=== PATIENT | male | born 1965 | race Caucasian/White ===

== ENCOUNTER 2017-04-10 07:49 | Emergency (ER) | payer MEDICAID ==
[~2017-04-10] VITALS: Ht 190.5 cm; Wt 77.1 kg
[~2017-04-10 07:49] MED LIST: AMIT25TA9 PO; ASCO500C49 PO; DICL75TA2 PO; DIVA500T7 PO; DOXY-216 PO; FER325T PO; FOLI1TAB6 PO; GABA-497 PO; IBUP800T24 PO; MULTTAB67 PO; OLA5T PO; OXYC7.5T88 PO; THIA100T5 PO; TRAM50TA2 PO; VENL75TA PO; ZINC220T3 PO
[2017-04-10 08:13] VITALS: BP 168/110
[2017-04-10] MEDS ORDERED: cefTRIAXone SOD 1,000 MG VL IM ONE (08:45)
== END 2017-04-10 09:17 | disposition home or self-care (01) ==
LOC: ER 07:49
DX: L02.511 Cutaneous abscess of right hand (principal); Z79.899 Other long term (current) drug therapy; F17.210 Nicotine dependence, cigarettes, uncomplicated
CPT/HCPCS: 10060; 87077; 87186; 87205; 96372; 99284; J0696

== ENCOUNTER 2017-04-12 07:18 | Emergency (ER) | payer MEDICAID ==
[~2017-04-12] VITALS: Ht 190.5 cm; Wt 77.1 kg
[2017-04-12 10:06] VITALS: BP 166/88
[2017-04-12] MEDS ORDERED: BACITRACIN TOP OINT 1 UD PKG TOP ONE (11:00)
== END 2017-04-12 11:15 | disposition home or self-care (01) ==
LOC: ER 07:18
DX: M71.021 Abscess of bursa, right elbow (principal); F17.210 Nicotine dependence, cigarettes, uncomplicated; Z89.521 Acquired absence of right knee; Z79.899 Other long term (current) drug therapy
CPT/HCPCS: 99282; J7050

== ENCOUNTER 2017-11-14 12:14 | Emergency (ER) | payer MEDICAID ==
[~2017-11-14] VITALS: Ht 190.5 cm; Wt 74.8 kg
[~2017-11-14 12:14] MED LIST changes: -GABA-497 PO; +GABA300C10 PO
[2017-11-14] MEDS ORDERED: SODIUM CHLORIDE 0.9% 1,000 ML IV ONE (14:42)
[2017-11-14 16:00] LABS: Basophils # (auto) 0 uL; Basophils % (auto) 0.8 % (0.0-2.0); Eosinophils # (auto) 0.2 uL; Eosinophils % (auto) 3.4 % (0.0-7.0); Hematocrit 32.6 % (41.0-53.0); Hemoglobin 11.2 g/dL (13.5-17.5); Lymphocytes # (auto) 1.8 uL; Lymphocytes % (auto) 38.1 % (10.0-50.0); Mean Corpuscular Hemoglobin 32.3 pg (28.0-32.0); Mean Corpuscular Hgb Conc. 34.4 g/dL (32.0-36.0); Mean Corpuscular Volume 94.1 fL (80.0-100.0); Monocytes # (auto) 0.3 uL; Monocytes % (auto) 5.5 % (0.0-12.0); Neutrophils # (auto) 2.5 uL; Neutrophils % (auto) 52.2 % (37.0-80.0); Platelet Count (auto) 184 10^3/uL (140-450); Red Blood Cells 3.46 10^6/uL (4.5-5.90); Red Cell Distribution Width 14.3 % (11.8-14.3); White Blood Cell 4.8 10^3/uL (4.4-10.8)
[2017-11-14 16:16] LABS: INR 1.22 (0.9-1.15); Partial Thromboplastin Time 33.4 sec (23.78-33.04); Prothrombin Time 12.9 sec (9.27-12.13)
[2017-11-14 16:19] VITALS: BP 179/100
[2017-11-14 16:29] LABS: Alanine Aminotransferase 35 U/L (16-61); Albumin 3.3 g/dL (3.4-5.0); Alkaline Phosphatase 98 U/L (45-117); Anion Gap 10 (5-15); Aspartate Aminotransferase 39 U/L (15-37); BUN/Creatinine Ratio 15.5; Bilirubin, Total 0.5 mg/dL (0.2-1.0); Blood Urea Nitrogen 11 mg/dL (7-18); Calcium 7.7 mg/dL (8.5-10.1); Carbon Dioxide 21 mmol/L (21-32); Chloride 96 mmol/L (98-107); GFR African American 149 mL/min; GFR Non-African American 123 mL/min; Glucose 78 mg/dL (74-106); Sodium 127 mmol/L (136-145); Total Protein 7.1 g/dL (6.4-8.2)
[2017-11-14] MEDS ORDERED: HYDROcodone-ACET 10/325MG TAB PO ONE (16:30)
== END 2017-11-14 18:06 | disposition home or self-care (01) ==
LOC: EDBD 12:14 → ER 12:22
DX: T81.89XA Other complications of procedures, not elsewhere classified, initial encounter (principal); F17.210 Nicotine dependence, cigarettes, uncomplicated; Z85.828 Personal history of other malignant neoplasm of skin; Z89.511 Acquired absence of right leg below knee; Z79.899 Other long term (current) drug therapy; Y92.89 Other specified places as the place of occurrence of the external cause
CPT/HCPCS: 36415; 70450; 80053; 84484; 85025; 85610; 85730

== ENCOUNTER 2017-11-25 08:09 | Emergency (ER) | payer MEDICAID ==
[~2017-11-25] VITALS: Ht 190.5 cm; Wt 74.8 kg
[2017-11-25 08:37] VITALS: BP 137/91
== END 2017-11-25 09:08 | disposition home or self-care (01) ==
LOC: ER 08:11
DX: S01.81XD Laceration without foreign body of other part of head, subsequent encounter (principal); F17.210 Nicotine dependence, cigarettes, uncomplicated; X58.XXXD Exposure to other specified factors, subsequent encounter

== ENCOUNTER 2018-11-02 12:15 | Emergency (ER) | payer MEDICAID ==
[~2018-11-02] VITALS: Ht 177.8 cm; Wt 79.8 kg
[~2018-11-02 12:15] MED LIST changes: +DIVA1TAB59 PO; -DIVA500T7 PO
[2018-11-02 12:33] VITALS: BP 137/77
[2018-11-02] MEDS ORDERED: GABAPENTIN 300 MG CAP PO ONE (13:45)
[2018-11-02] MEDS ORDERED: IBUPROFEN 800 MG TAB PO ONE (13:45)
== END 2018-11-02 13:54 | disposition home or self-care (01) ==
LOC: EDBD 12:15 → ER 12:15
DX: F41.9 Anxiety disorder, unspecified (principal); F32.9 Major depressive disorder, single episode, unspecified; F17.210 Nicotine dependence, cigarettes, uncomplicated; Z76.0 Encounter for issue of repeat prescription; Z79.899 Other long term (current) drug therapy
CPT/HCPCS: 93005

== ENCOUNTER 2020-02-19 15:57 | Inpatient (IN) | payer MEDICAID ==
[~2020-02-19] VITALS: Ht 190.5 cm; Wt 68.4 kg
[~2020-02-19 15:57] MED LIST changes: -DOXY-216 PO; +DOXY-286 PO; -VENL75TA PO; +VENL75TA2 PO
[2020-02-19 17:16] LABS: Basophils # (auto) 0 10 ^3/uL (0-0.2); Basophils % (auto) 0.3 % (0.0-2.0); Eosinophils # (auto) 0.1 10 ^3/uL (0-0.8); Eosinophils % (auto) 1.9 % (0.0-7.0); Hematocrit 26.2 % (41.0-53.0); Hemoglobin 8.5 g/dL (13.5-17.5); Lymphocytes # (auto) 0.8 10 ^3/uL (0.4-5.4); Mean Corpuscular Hemoglobin 29.1 pg (28.0-32.0); Mean Corpuscular Hgb Conc. 32.6 g/dL (32.0-36.0); Mean Corpuscular Volume 89.2 fL (80.0-100.0); Monocytes # (auto) 0.4 10 ^3/uL (0-1.3); Monocytes % (auto) 7.1 % (0.0-12.0); Neutrophils # (auto) 4.6 10 ^3/uL (1.6-8.6); Neutrophils % (auto) 77.7 % (37.0-80.0); Platelet Count (auto) 237 10^3/uL (140-450); Red Blood Cells 2.94 10^6/uL (4.5-5.90); Red Cell Distribution Width 16.9 % (11.8-14.3); White Blood Cell 5.9 10^3/uL (4.4-10.8)
[2020-02-19 17:27] LABS: Albumin 2.4 g/dL (3.4-5.0); Calcium 8.8 mg/dL (8.5-10.1); Potassium 3.1 mmol/L (3.5-5.1)
[2020-02-19 17:31] LABS: BUN/Creatinine Ratio 16.6; Bilirubin, Total 0.5 mg/dL (0.2-1.0); Total Protein 7.8 g/dL (6.4-8.2)
[2020-02-19 20:38] LABS: Urine Bacteria FEW /hpf (None Seen); Urine Blood TRACE /uL (Negative); Urine Hyaline Cast FEW /lpf (0 - 2); Urine Specific Gravity 1.026 (1.001-1.035); Urine WBC 5 /hpf (0 - 3)
[2020-02-19] MEDS ORDERED: SODIUM CHLORIDE 0.9% 1,000 ML IVB ONE (21:07)
[2020-02-19] MEDS ORDERED: HYDROcodone-ACET 10/325MG TAB PO ONE (21:15)
[2020-02-19] MEDS ORDERED: CLINDAMYCIN 600MG IV 50 ML IV ONE (21:15)
[2020-02-19] MEDS ORDERED: cefTRIAXone 1GM/50ML D5W 50 ML IV ONE (21:15)
[2020-02-19 22:00] LABS: INR 1.31 (0.9-1.15); Partial Thromboplastin Time 30.2 sec (23.0-31.2)
[2020-02-19] MEDS ORDERED: ONDANSETRON HCL 4 MG/2 ML VIAL IV PRN (22:00)
[2020-02-19] MEDS ORDERED: DOCUSATE SOD 100 MG CAP PO PRN (22:00)
[2020-02-19] MEDS ORDERED: LORazepam 0.5 MG TAB PO PRN (22:00)
[2020-02-19] MEDS ORDERED: ACETAMINOPHEN 325 MG TAB PO PRN (22:00)
[2020-02-20 01:00] VITALS: BP 138/83
--- NOTE | 2020-02-20 01:00 | NUR ---
assumed care of pt, who is alert and oriented x4, speech is clear but possible hx of TBI r/t fall 10 years ago as mannerisms are child-like. Pt has no s/s of distress and no c/o pain or discomfort. large wound to lateral upper calf area of rt BKA, opened to air. pt also has 1st and 2nd toes missing from left foot with some scabbing to zepeda area. otherwise skin is intact.
[2020-02-20] MEDS: CLINDAMYCIN 600MG IV 50 ML IV SCH ×4 (01:15→18:23)
--- NOTE | 2020-02-20 02:00 | NUR ---
wound cleaned and dressing applied, pt given pain meds and reassurance.
[2020-02-20] MEDS: HYDROcodone-ACET 5/325MG TAB PO PRN ×2 (02:26→11:27)
[2020-02-20] MEDS: TEMAZEPAM 15 MG CAP PO PRN (02:26)
[2020-02-20 05:00] VITALS: BP 129/71
[2020-02-20 05:25] LABS: Hemoglobin 7.8 g/dL (13.5-17.5); White Blood Cell 4.1 10^3/uL (4.4-10.8)
[2020-02-20 05:27] LABS: Hematocrit 24.5 % (41.0-53.0); Mean Corpuscular Hemoglobin 29.9 pg (28.0-32.0); Mean Corpuscular Volume 93.4 fL (80.0-100.0); Platelet Count (auto) 180 10^3/uL (140-450); Red Blood Cells 2.62 10^6/uL (4.5-5.90); Red Cell Distribution Width 17.3 % (11.8-14.3)
[2020-02-20 05:41] LABS: Calcium 8.1 mg/dL (8.5-10.1); Potassium 3.5 mmol/L (3.5-5.1)
[2020-02-20 05:45] LABS: BUN/Creatinine Ratio 24.2
[2020-02-20 05:53] LABS: Basophils % (manual) 0 (0.0-2.0); Blast Cells 0; Myelocytes % 0; Promyelocytes % 0; Reactive Lymphocytes 0
--- NOTE | 2020-02-20 07:40 | NUR ---
Opening shift note Assumed care of patient from CODY Medeiros. Patient is AOx4, so s/s of SOB or distress noted. Bed is in lowest locked position, side rails up x2, and call light is within reach. Educated patient on how to use call light and telephone, patient verbalized understanding. Patient stated "When can i go home? I want to leave!" Educated patient reading D/C and the right to sign out AMA. Patient verbalized understanding and stated "I guess i will stay here and wait for a doctor." Will continue to monitor q1hr and PRN. Addendum: 02/20/20 at 1318 by DOROTHY BEE RN IV NOTED TO BE REMOVED. PATIENT STATED "I DO NOT NOW WHAT HAPPENED IT JUST FELL OUT."
[2020-02-20 09:00] VITALS: BP 116/50
[2020-02-20 09:08] LABS: Band Neutrophils % (manual) 7; Eosinophils % (manual) 2 (0-7); Lymphocytes % (manual) 29 (10.0-50.0); Metamyelocytes % 2; Monocytes % (manual) 7 (0-12)
[2020-02-20] MEDS: cefTRIAXone 1GM/50ML D5W 50 ML IV SCH ×2 (10:00→11:26)
--- NOTE | 2020-02-20 11:00 | NUR ---
Patient request for password patient requested password to be placed on account. Patient stated "my son Keegan's number is [phone]".
--- NOTE | 2020-02-20 11:30 | NUR ---
WOUND CARE NOTE: IN TO SEE PATIENT AT THIS TIME PER WOUND CARE CONSULT REQUEST. PATIENT ADMITTED TO [facility] WITH DIAGNOSIS OF INFECTION OF AMPUTATION STUMP WOUND, POSSIBLE CELLULITIS. CURRENT ABHIJIT SCORE IS 21. WOUND PHOTO TAKEN AT TIME OF ADMIT BY BEDSIDE NURSE FOR REFERENCE. PATIENT STATES THAT HE NOTED WOUND APPROXIMATELY 4 DAYS AGO. HE HAS HAD A RIGHT BKA, WITH A WELL HEALED STUMP. PATIENT USES AN ILL FITTING PROSTHESIS, AND WAS RENDERED WITH AN UNSTAGEABLE PRESSURE INJURY TO THE RIGHT BKA CALF. WOUND MEASURES 4 X 3.5 CM, WITH 1 CM UNDERMINING FROM 0900 TO 1100. WOUND COVERED WITH YELLOW SLOUGH. LIGHT SEROUS DRAINAGE NOTED. APPLIED THERAHONEY, OPTIFOAM GENTLE DRESING TO WOUND. WOUND CULTURES ARE PENDING AT THIS TIME. PODIATRY CONSULT ALSO PENDING. RECOMMEND: ELEVATION OF RIGHT BKA STUMP FOR EDEMA CONTROL, DAILY/PRN DRESSING CHANGE, DIETARY CONSULT, SKIN/WOUND CARE PLAN, PODIATRY CONSULT, CONTINUED MONITORING BY WOUND CARE TEAM. ANY FURTHER WOUND RECOMMENDATIONS DEFERRED TO ARTIFICIAL STONE APPLICATOR AT THIS POINT. Addendum: 02/20/20 at 1621 by Taylor Salcedo RN Amended: Links added.
--- NOTE | 2020-02-20 12:00 | NUR ---
IV ATEMPT IV access attempted twice, no IV acess was gained. Notified weigh and charge worker Joslyn. Per charge she will attempt IV.
--- NOTE | 2020-02-20 12:40 | NUR ---
Physician rounding Dr. Mayo at nurses station, updated MD on patient status. New orders received. Will follow through, will continue care.
[2020-02-20 13:00] VITALS: BP 142/63
--- NOTE | 2020-02-20 13:00 | NUR ---
Physician rounding Dr. Amaral at bedside, updated patient on plan of care, patient verbalized understanding, no new orders received.
--- NOTE | 2020-02-20 13:23 | NUR ---
COMPOSITE LAMINATORRASHMI Davis at bedside attempting ultrasound guided IV insertion.
--- NOTE | 2020-02-20 13:38 | NUR ---
IV insertion RASHMI Davis gained IV access by inserting 20 gauge catheter at left upper arm. IV secured properly.
[2020-02-20] MEDS: MORPHINE SULF INJ 2 MG/ML SYRINGE 1ML IV PRN (16:54)
[2020-02-20 17:00] VITALS: BP 129/51
[2020-02-20] MEDS: Ensure HIGH Protein Chocolate 8oz Bottle PO SCH (18:33)
--- NOTE | 2020-02-20 19:25 | NUR ---
end of shift note Endorsed care to noc RASHMI Lu. No s/s of distress noted.
--- NOTE | 2020-02-20 20:45 | NUR ---
IV removal IV DC'd due to infiltration. Dc'd with sterile technique, catheter fully intact. Pressure dressing applied to site. Patient tolerated procedure well.
--- NOTE | 2020-02-20 20:48 | NUR ---
IV insertion IV access obtained, via clean sterile technique by inserting 22 gauge catheter at right forearm after 2 attempts. IV secured properly. No trauma to site. Patient tolerated procedure well.
[2020-02-20 22:00] VITALS: BP 126/78
[2020-02-21] MEDS: CLINDAMYCIN 600MG IV 50 ML IV SCH ×5 (00:26→23:42)
[2020-02-21 05:00] VITALS: BP 150/81
[2020-02-21] MEDS: MORPHINE SULF INJ 2 MG/ML SYRINGE 1ML IV PRN ×3 (05:23→18:28)
[2020-02-21 06:15] LABS: Basophils # (auto) 0 10 ^3/uL (0-0.2); Basophils % (auto) 0.6 % (0.0-2.0); Eosinophils # (auto) 0.1 10 ^3/uL (0-0.8); Hemoglobin 7.7 g/dL (13.5-17.5); Lymphocytes # (auto) 0.6 10 ^3/uL (0.4-5.4); Monocytes # (auto) 0.3 10 ^3/uL (0-1.3); Neutrophils # (auto) 2.2 10 ^3/uL (1.6-8.6); White Blood Cell 3.3 10^3/uL (4.4-10.8)
[2020-02-21 06:18] LABS: Eosinophils % (auto) 3.5 % (0.0-7.0); Hematocrit 23.3 % (41.0-53.0); Mean Corpuscular Hemoglobin 29.7 pg (28.0-32.0); Mean Corpuscular Hgb Conc. 32.9 g/dL (32.0-36.0); Mean Corpuscular Volume 90.2 fL (80.0-100.0); Monocytes % (auto) 9.8 % (0.0-12.0); Neutrophils % (auto) 67.1 % (37.0-80.0); Nucleated Red Blood Cells % 0.1 %; Platelet Count (auto) 185 10^3/uL (140-450); Red Blood Cells 2.59 10^6/uL (4.5-5.90); Red Cell Distribution Width 16.9 % (11.8-14.3)
[2020-02-21 06:37] LABS: BUN/Creatinine Ratio 37.1; Calcium 8.2 mg/dL (8.5-10.1)
--- NOTE | 2020-02-21 07:40 | NUR ---
Opening shift note Assumed care of patient from NOC RN Aly. Patient is AOx4, so s/s of SOB or distress noted. Bed is in lowest locked position, side rails up x2, and call light is within reach. Educated patient on how to use call light and telephone, patient verbalized understanding. Will continue to monitor q1hr and PRN.
[2020-02-21 09:00] VITALS: BP 124/71
[2020-02-21] MEDS: Ensure HIGH Protein Chocolate 8oz Bottle PO SCH ×3 (09:56→18:23)
[2020-02-21] MEDS: cefTRIAXone 1GM/50ML D5W 50 ML IV SCH (10:30)
--- NOTE | 2020-02-21 10:40 | NUR ---
Dressing change Dressing changed, patient tolerated procedure well. Will continue to monitor.
--- NOTE | 2020-02-21 11:00 | NUR ---
Physician rounding Dr. Amaral at bedside. updated patient on plan of care, patient verbalized understanding. New orders received will follow through. Addendum: 02/21/20 at 1809 by DOROTHY BEE RN Per doctor columba procedure for tomorrow is called Right stump application of allograft.
--- NOTE | 2020-02-21 11:41 | NUR ---
Nutrition Consult Consider adding MVI and Vitamin C 500 mg BID Est energy needs 0943-2760 kcal (25-30 kcal/kg BW 67.5kg) Est protein needs 68-74g (1-1.1g/kg BW 67.5kg) WIll reassess prn. Addendum: 02/21/20 at [address] Amended: Links added.
[2020-02-21] MEDS ORDERED: PHYTONADIONE(VitK) ORAL Susp 10mg/10ml(1mg/ml) PO ONE (12:15)
--- NOTE | 2020-02-21 12:15 | NUR ---
Physician roundsusan Mayo at bedside. MD updated patient on plan of care and patient verbalized understanding. Patient requesting to resume home medications, stated that home medications can be resumed. New orders received will follow thorough. Addendum: 02/21/20 at 1831 by DOROTHY BEE RN patient requesting to resume gabapentin.
--- NOTE | 2020-02-21 12:20 | NUR ---
IV assessment IV noted to be infiltrated. Will notify set up and charger regarding no IV access.
--- NOTE | 2020-02-21 12:27 | NUR ---
Notified PICC nurse regarding Midline insertion.
--- NOTE | 2020-02-21 12:59 | NUR ---
Midline Placement: Patient educated on need for midline placement. All risks and benefits explained and all questions and concerns addresses prior to procedure. 18g/10cm midline inserted via L CEPHALIC vein using Ultrasound. Sterile technique utilized. Blood return obtained from SINGLE lumen and flushed easily with NS using proper technique. Midline secured with saline lock; biodisc and occlusive dressing applied. Primary RN notified. Midline lot # [id number].
[2020-02-21 13:00] VITALS: BP 123/74
[2020-02-21 17:00] VITALS: BP 134/91
--- NOTE | 2020-02-21 19:00 | NUR ---
End of shift note Endorsed care to NOC RN Aliyah. No s/s of distress noted.
[2020-02-21] MEDS: GABAPENTIN 300 MG CAP PO SCH (21:50)
[2020-02-21 22:00] VITALS: BP 115/67
[2020-02-22 05:23] VITALS: BP 139/87
[2020-02-22] MEDS: GABAPENTIN 300 MG CAP PO SCH ×3 (06:17→21:00)
[2020-02-22] MEDS: CLINDAMYCIN 600MG IV 50 ML IV SCH ×3 (06:17→18:06)
[2020-02-22 06:19] LABS: Basophils # (auto) 0 10 ^3/uL (0-0.2); Basophils % (auto) 0.6 % (0.0-2.0); Eosinophils # (auto) 0.1 10 ^3/uL (0-0.8); Lymphocytes # (auto) 0.9 10 ^3/uL (0.4-5.4); Neutrophils # (auto) 2.4 10 ^3/uL (1.6-8.6); White Blood Cell 3.8 10^3/uL (4.4-10.8)
[2020-02-22 06:22] LABS: Eosinophils % (auto) 3.6 % (0.0-7.0); Hematocrit 23.9 % (41.0-53.0); Lymphocytes % (auto) 23.6 % (10.0-50.0); Mean Corpuscular Hemoglobin 29.7 pg (28.0-32.0); Mean Corpuscular Hgb Conc. 33.5 g/dL (32.0-36.0); Mean Corpuscular Volume 88.8 fL (80.0-100.0); Monocytes # (auto) 0.4 10 ^3/uL (0-1.3); Monocytes % (auto) 9.9 % (0.0-12.0); Neutrophils % (auto) 62.3 % (37.0-80.0); Platelet Count (auto) 191 10^3/uL (140-450); Red Blood Cells 2.69 10^6/uL (4.5-5.90); Red Cell Distribution Width 17.8 % (11.8-14.3)
--- NOTE | 2020-02-22 06:32 | NUR ---
received a call from pre-op, requesting pt to be there by 730, will let day shift nurse know, completing checklist at this time.
[2020-02-22 06:34] LABS: INR 1.26 (0.9-1.15)
[2020-02-22 06:42] LABS: Potassium 4.5 mmol/L (3.5-5.1)
[2020-02-22 06:54] LABS: BUN/Creatinine Ratio 35.7; Calcium 8.4 mg/dL (8.5-10.1)
[2020-02-22] MEDS: ceFAZolin 1GM VL ONE ×2 (07:13→11:03)
[2020-02-22] MEDS ORDERED: ROPIVACAINE 0.5% (5MG/ML) 20ML AMPULE IJ ONE (07:13)
--- NOTE | 2020-02-22 07:30 | NUR ---
Opening Shift Note Assuming care of patient at this time. Patient is awake and alert. Patient denies pain. Patient shows no signs or symptoms of distress or shortness of breath. Bed is locked and lowered with side rails up x2. Instructed patient on the plan of care for today and to call for assistance as needed. Call light within reach. Will continue to round hourly and as needed.
--- NOTE | 2020-02-22 07:50 | NUR ---
Patient off Unit Patient taken to OR at this time.
[2020-02-22] MEDS ORDERED: fentaNYL CITRATE 100 MCG/2 ML VL ONE (07:55)
[2020-02-22] MEDS ORDERED: SODIUM CHLORIDE LOCK 10 ML ONE (07:55)
[2020-02-22] MEDS ORDERED: PROPOFOL 10 MG/ML 20 ML IV ONE (07:55)
[2020-02-22] MEDS ORDERED: ONDANSETRON HCL 4 MG/2 ML VIAL ONE (07:55)
[2020-02-22] MEDS ORDERED: MIDAZOLAM HCL 1MG/1ML-2 ML VIAL ONE (07:55)
[2020-02-22] MEDS: Ensure HIGH Protein Chocolate 8oz Bottle PO SCH ×3 (08:00→18:06)
[2020-02-22] MEDS ORDERED: ceFAZolin 1GM/50ML 50 ML IV ONE (08:02)
[2020-02-22] MEDS ORDERED: METOCLOPRAMIDE HCL 5MG/ml INJ 2ml VIAL IV PRN (08:15)
[2020-02-22] MEDS ORDERED: MORPHINE SULFATE 4 MG/ML SYR/VIAL IV PRN (08:15)
[2020-02-22] MEDS ORDERED: HYDROmorphone HCL 2 MG/ML VL IV PRN (08:15)
[2020-02-22] MEDS ORDERED: ACCU-CHEK COMFORT CURVE STRIP VI ONE (08:15)
--- NOTE | 2020-02-22 08:33 | NUR ---
Assessment Patient is a 55-year-old male who is alert and oriented. Prior to admission patient lived home with friends and functioned independently. Patient can care for his own ADLs. Per patient he will return to his prior living arrangements post discharge and his friend Morris Lozano will transport him home. Patient states he has a shower chair and walker for home use. Advised patient there is a social service consult for home health wound care. Patient refused home health service stating he can do it himself or his two friends can help care for his wound. Informed patient he has a right to participate in all discharge planning. Patient verbalized understanding and agreed to discharge plan home. Addendum: 02/22/20 at 0834 by JULIÁN MCGINNIS Amended: Links added.
[2020-02-22 09:00] VITALS: BP 91/62
[2020-02-22] MEDS ORDERED: KETAMINE HCL 10 ML ONE (09:10)
[2020-02-22] MEDS: cefTRIAXone 1GM/50ML D5W 50 ML IV SCH (10:00)
[2020-02-22] MEDS ORDERED: LIDOCAINE HCL 2 %PF INJ 10ML AMP IJ ONE (10:14)
[2020-02-22] MEDS ORDERED: LIDOCAINE 2%HCL (LOCAL ANESTH.) INJ 20ML MDV ONE (10:17)
--- NOTE | 2020-02-22 12:15 | NUR ---
Patient back on Unit Patient back on unit at this time. Dressing to surgical site is wrapped in kerlix. Dressing is clean, dry, and intact. Patient denies pain. Patient shows no signs or symptoms of distress.
[2020-02-22 13:00] VITALS: BP 145/92
[2020-02-22] MEDS: MORPHINE SULF INJ 2 MG/ML SYRINGE 1ML IV PRN ×2 (14:46→21:01)
[2020-02-22 16:53] VITALS: BP 109/74
--- NOTE | 2020-02-22 19:10 | NUR ---
Closing Shift Note Patient resting in bed. No distress noted. Report given. Will endorse care to the high school science teacher.
--- NOTE | 2020-02-22 19:12 | NUR ---
Opening Shift Note Assuming care of patient at this time. Patient is awake and alert. Patient denies pain at this time. Patient shows no signs or symptoms of distress or shortness of breath. Bed is locked and lowered with side rails up x2 and call ferraro within reach. Instructed patient on the plan of care for today and to call for assistance as needed, all questions and concerns addressed, patient verbalizes understanding. Call light within reach. Will continue to round hourly and as needed.
[2020-02-22 20:00] VITALS: BP 123/74
[2020-02-22 22:00] VITALS: BP 123/74
[2020-02-23] MEDS: CLINDAMYCIN 600MG IV 50 ML IV SCH ×3 (00:09→12:00)
[2020-02-23] MEDS: TEMAZEPAM 15 MG CAP PO PRN (00:10)
--- NOTE | 2020-02-23 00:48 | NUR ---
Care endorsed to Hannah CARABALLO.
[2020-02-23 05:00] VITALS: BP 132/76
[2020-02-23] MEDS: GABAPENTIN 300 MG CAP PO SCH ×2 (05:47→14:43)
[2020-02-23 05:59] LABS: Basophils # (auto) 0 10 ^3/uL (0-0.2); Eosinophils # (auto) 0.2 10 ^3/uL (0-0.8); Hematocrit 23.6 % (41.0-53.0); Hemoglobin 7.8 g/dL (13.5-17.5); Monocytes # (auto) 0.4 10 ^3/uL (0-1.3)
[2020-02-23 06:02] LABS: Basophils % (auto) 0.7 % (0.0-2.0); Eosinophils % (auto) 3.5 % (0.0-7.0); Lymphocytes % (auto) 22.9 % (10.0-50.0); Mean Corpuscular Hemoglobin 29.5 pg (28.0-32.0); Mean Corpuscular Hgb Conc. 33.2 g/dL (32.0-36.0); Monocytes % (auto) 9.4 % (0.0-12.0); Neutrophils # (auto) 2.9 10 ^3/uL (1.6-8.6); Neutrophils % (auto) 63.5 % (37.0-80.0); Nucleated Red Blood Cells % 0.2 %; Platelet Count (auto) 163 10^3/uL (140-450); Red Blood Cells 2.65 10^6/uL (4.5-5.90); Red Cell Distribution Width 17.8 % (11.8-14.3); White Blood Cell 4.6 10^3/uL (4.4-10.8)
[2020-02-23] MEDS: HYDROcodone-ACET 5/325MG TAB PO PRN (06:23)
[2020-02-23 06:42] LABS: BUN/Creatinine Ratio 37.8; Calcium 8.4 mg/dL (8.5-10.1); Potassium 4.5 mmol/L (3.5-5.1)
--- NOTE | 2020-02-23 07:30 | NUR ---
Opening Shift Note Assuming care of patient at this time. Patient is awake and alert. Patient denies pain at this time. Patient shows no signs or symptoms of distress or shortness of breath. Bed is locked and lowered with side rails up x2. Instructed patient on the plan of care for today and to call for assistance as needed. Call light within reach. Will continue to round hourly and as needed.
[2020-02-23] MEDS: Ensure HIGH Protein Chocolate 8oz Bottle PO SCH ×2 (08:30→12:30)
[2020-02-23 09:00] VITALS: BP 115/65
[2020-02-23] MEDS: cefTRIAXone 1GM/50ML D5W 50 ML IV SCH (10:30)
--- NOTE | 2020-02-23 12:12 | NUR ---
Pt provided crutches. The crutches were adjusted to fit his frame. Due to extensive experience with crutches the pt was able to demonstrate competence using the crutches without any education required. Addendum: 02/23/20 at 1216 by Rocky Vazquez YARD DEMURRAGE CLERK Amended: Links added.
[2020-02-23 16:23] VITALS: BP 115/65
--- NOTE | 2020-02-23 17:46 | NUR ---
Discharge Discharge instructions given as ordered. Encourage to follow up with PMD as instructed. Appointments made for patient's primary and surgeon, Dr. Amaral. All questions and concerns addressed. Patient verbalized understanding. Medication reconciliation form completed and copy given to patient. Prescription delivered to patient's bedside. IV removed with catheter intact, pressure dressing applied. Patient taken to vehicle via wheelchair with all personal belongings, accompanied by staff and family member. No distress noted at time of departure.
--- NOTE | 2020-02-23 17:49 | NUR ---
Crutches Assisted patient with putting crutches in his friend's vehicle.
== END 2020-02-23 17:30 | disposition home or self-care (01) | DRG 317 ==
LOC: ER 15:57 → OVERFLOW 15:58 → WEST WING 23:33
PROVIDERS: ADMIT Hospitalist; ATTEND Internal Medicine
PROC: 0JU Subcutaneous Tissue and Fascia, Supplement (ICD-10-PCS; principal; 2020-02-22 10:26)
DX: T87.40 Infection of amputation stump, unspecified extremity (principal); E87.6 Hypokalemia; E87.1 Hypo-osmolality and hyponatremia; D63.8 Anemia in other chronic diseases classified elsewhere; D68.9 Coagulation defect, unspecified; L03.115 Cellulitis of right lower limb; L89.890 Pressure ulcer of other site, unstageable; E44.0 Moderate protein-calorie malnutrition; F41.9 Anxiety disorder, unspecified; F17.210 Nicotine dependence, cigarettes, uncomplicated; Y83.5 Amputation of limb(s) as the cause of abnormal reaction of the patient, or of later complication, without mention of misadventure at the time of the procedure; N18.9 Chronic kidney disease, unspecified; N17.0 Acute kidney failure with tubular necrosis; D50.9 Iron deficiency anemia, unspecified; Z89.511 Acquired absence of right leg below knee; Z68.1 Body mass index [BMI] 19.9 or less, adult; E88.09 Other disorders of plasma-protein metabolism, not elsewhere classified
CPT/HCPCS: 36415; 71045; 73590; 80048; 80053; 81001; 83605; 83735; 85007; 85025; 85027; 85610; 85730; 87040; 87070; 87075; 87076; 87077; 87086; 87186; 87205; G0378; J0690; J0696; J2250; J2405; J2704; J3490

== ENCOUNTER 2020-03-16 16:24 | Inpatient (IN) | payer MEDICAID ==
[~2020-03-16] VITALS: Ht 182.9 cm; Wt 70.6 kg
[2020-03-16] MEDS ORDERED: SODIUM CHLORIDE 0.9% 1,000 ML IV ONE (16:45)
[2020-03-16 17:44] LABS: Basophils # (auto) 0 10 ^3/uL (0-0.2); Basophils % (auto) 1.2 % (0.0-2.0); Eosinophils # (auto) 0.2 10 ^3/uL (0-0.8); Eosinophils % (auto) 8.3 % (0.0-7.0); Hematocrit 28.3 % (41.0-53.0); Hemoglobin 9.2 g/dL (13.5-17.5); Lymphocytes % (auto) 45.9 % (10.0-50.0); Mean Corpuscular Hemoglobin 29.4 pg (28.0-32.0); Mean Corpuscular Hgb Conc. 32.5 g/dL (32.0-36.0); Mean Corpuscular Volume 90.4 fL (80.0-100.0); Monocytes # (auto) 0.2 10 ^3/uL (0-1.3); Neutrophils # (auto) 0.8 10 ^3/uL (1.6-8.6); Neutrophils % (auto) 36.6 % (37.0-80.0); Nucleated Red Blood Cells % 0.3 %; Platelet Count (auto) 118 10^3/uL (140-450); Red Blood Cells 3.13 10^6/uL (4.5-5.90); Red Cell Distribution Width 17.8 % (11.8-14.3); White Blood Cell 2.2 10^3/uL (4.4-10.8)
[2020-03-16 17:57] LABS: INR 1.24 (0.9-1.15); Partial Thromboplastin Time 29.8 sec (23.0-31.2)
[2020-03-16 18:01] LABS: Alanine Aminotransferase 15 U/L (16-61); Albumin 2.9 g/dL (3.4-5.0); Anion Gap 8 (5-15); Aspartate Aminotransferase 19 U/L (15-37); BUN/Creatinine Ratio 12.6; Blood Urea Nitrogen 14 mg/dL (7-18); Calcium 8.9 mg/dL (8.5-10.1); Carbon Dioxide 23 mmol/L (21-32); Chloride 107 mmol/L (98-107); GFR African American 88 mL/min; GFR Non-African American 73 mL/min; Glucose 65 mg/dL (74-106); Lactic Acid w/Reflex 2.2 mmol/L (0.4-2.0); Potassium 4.3 mmol/L (3.5-5.1); Sodium 138 mmol/L (136-145)
[2020-03-16 18:05] LABS: Alkaline Phosphatase 97 U/L (45-117); Bilirubin, Total 0.3 mg/dL (0.2-1.0); Total Protein 7.4 g/dL (6.4-8.2)
[2020-03-16] MEDS ORDERED: DEXTROSE 50% SYRINGE 50 ML IV ONE (19:07)
[2020-03-16] MEDS ORDERED: NITROGLYCERIN 0.4 MG SL TAB SL PRN (19:30)
[2020-03-16] MEDS ORDERED: LORazepam 2MG/ML-1ML VIAL IV PRN (19:30)
[2020-03-16] MEDS ORDERED: MORPHINE SULF INJ 2 MG/ML SYRINGE 1ML IV PRN (19:30)
[2020-03-16] MEDS ORDERED: LABETALOL HCL 5 MG/ML 4ML SYRINGE IV PRN (19:30)
[2020-03-16] MEDS ORDERED: FOLIC ACID 1 MG in D5W 5% 50 ML INJ ONE (20:00)
[2020-03-16] MEDS: D5W/SOD CHLO 0.9% 1,000 ML IV SCH (20:35)
--- NOTE | 2020-03-16 20:38 | NUR ---
PT ONLY RECEIVED 400ML OF NS. Addendum: 03/16/20 at 2037 by BRYANNA HAINES RN Amended: Links added.
[2020-03-16 21:20] VITALS: BP 179/91
[2020-03-16 22:00] VITALS: BP 194/92
--- NOTE | 2020-03-16 22:50 | NUR ---
ADMitted to the floor received an altered 55 year old male brought by ed staff to 77 b-bed. unable to follow command. No yuko right bka, stump clean and dry but with what appear to be a skin graft to right knee lateral. wound is fresh with stitches around it, center has a yellowish tissue and wound bed is pinkish and moist. no bleeding, no drainage noted. pt complained of pain as it was being cleaned by yours truly. left foot toes noted to have open wounds as well, 2nd, 3rd, and 4th. open moist pinkish sores with some bleeding in it. cleaned with ns and wrapped with kerlix. kept pt clean and dry as he had a sort of incontinence when he came. blood pressure noted to be elevated. noted blood pressure medication ordered as needed. administered labetalol iv as it was elevated, taken 2x. pt unable to follow command, unable to answer question. speech was clear but has delayed responses.
[2020-03-16 23:02] VITALS: BP 202/96
--- NOTE | 2020-03-16 23:15 | NUR ---
patient agitated in bed undeterminable whether he wants to lay down on either side. sits then lays down. pulled off his chucks and threw them to the floor. tried to calm him down but unable to listen at this time. tried laying his left foot on the ground but remind him of safety precautions. patient still unable to understand.
--- NOTE | 2020-03-16 23:16 | NUR ---
went out of the room to get wound care materials, noted patient tried to get up and walk, with a right bka. rushed to the room and tried to put him back to bed. charge nurse aware, 1:1 sitter provided for safety.
--- NOTE | 2020-03-17 00:01 | NUR ---
son, rachael, called. stated he is the primary contact family member of patient. gave a password of "[employer]". seem to be unaware why pt was admitted to hospital. informed that pt was being under alcohol intoxication and was altered-with medical issues. gave his contact information , stated he may be called anytime with any changes regarding pt condition.
--- NOTE | 2020-03-17 00:02 | NUR ---
COMPLETED ADMISSION, PROVIDED UPDATE TO RN. NOTIFIED ENGINEERING DEPARTMENT CHAIR QUESTIONS COMPLETED BY INFORMATION FROM PREVIOUS CHART, AND CURRENT H&P. PT IS AOX1 AND UNABLE TO ANSWER QUESTIONS, SITTER AT BEDSIDE. NOTIFIED RN OF REQUIRING MRSA SWAB FOR PT BEING DISCHARGE IN THE LAST 30 DAYS, SOME ADMISSION PHYSICAL/SKIN/VTE QUESTIONS NEEDS TO BE COMPLETED. Addendum: 03/17/20 at 0007 by Victor M Monreal RN COMPLETED ADMISSION, PROVIDED UPDATE TO RN. NOTIFIED ENGINEERING DEPARTMENT CHAIR QUESTIONS COMPLETED BY INFORMATION FROM PREVIOUS CHART, AND CURRENT H&P. PT IS AOX1 AND UNABLE TO ANSWER QUESTIONS, SITTER AT BEDSIDE. NOTIFIED RN OF REQUIRING MRSA SWAB FOR PT BEING DISCHARGE IN THE LAST 30 DAYS, SOME ADMISSION PHYSICAL/SKIN/VTE QUESTIONS NEEDS TO BE COMPLETED BY PRIMARY RN, VITALS NEEDS TO BE PUT IN SYSTEM IN ADMISSION QUESTION. BELONGING LIST IN PHYSICAL CHART. Addendum: 03/17/20 at 0024 by Victor M Monreal RN called contact in chart to get info for admission questions, no answer. called x2. Addendum: 03/17/20 at 0025 by Victor M Monreal RN belonging list in physical chart.
--- NOTE | 2020-03-17 01:46 | NUR ---
sitter on lunch, covered by another see wheeler personnel. patient noted high fowlers on bed, mumbling with unintelligible words rubbing both his arms, with blanket chest-high staring down blankly. his name called but unable to respond with attention or verbal cue
--- NOTE | 2020-03-17 02:15 | NUR ---
MRSA swab; wound cx collected
--- NOTE | 2020-03-17 02:56 | NUR ---
patient had a huge bowel movement, soft consistency, rivera brown. during cleaning up simple commands given but patient unable to follow. same question being asked by him "what are you doing?" "i don't understand.."--multiple times he was given rationale for helping him maintain hygiene.
--- NOTE | 2020-03-17 04:27 | NUR ---
new PIV attempt left ac piv running iv fluids but patient keep bending his arm so as to slow down drip. attempted to establish new peripheral access to right arm, he refused, stated "i can't have pain, man. you understand? i can't have pain." reminded him to keep arm at least semi-bent for his iv to flow.
[2020-03-17 04:47] VITALS: BP 148/72
[2020-03-17 07:21] LABS: Basophils # (auto) 0 10 ^3/uL (0-0.2); Basophils % (auto) 0.7 % (0.0-2.0); Eosinophils # (auto) 0.1 10 ^3/uL (0-0.8); Eosinophils % (auto) 5.1 % (0.0-7.0); Hematocrit 27.6 % (41.0-53.0); Lymphocytes # (auto) 0.7 10 ^3/uL (0.4-5.4); Lymphocytes % (auto) 29.5 % (10.0-50.0); Mean Corpuscular Hemoglobin 29.7 pg (28.0-32.0); Mean Corpuscular Hgb Conc. 32.8 g/dL (32.0-36.0); Mean Corpuscular Volume 90.5 fL (80.0-100.0); Monocytes # (auto) 0.3 10 ^3/uL (0-1.3); Neutrophils # (auto) 1.3 10 ^3/uL (1.6-8.6); Neutrophils % (auto) 52.7 % (37.0-80.0); Nucleated Red Blood Cells % 0.2 %; Platelet Count (auto) 116 10^3/uL (140-450); Red Blood Cells 3.05 10^6/uL (4.5-5.90); Red Cell Distribution Width 17.6 % (11.8-14.3); White Blood Cell 2.5 10^3/uL (4.4-10.8)
[2020-03-17 07:30] LABS: INR 1.34 (0.9-1.15)
--- NOTE | 2020-03-17 07:30 | NUR ---
Opening Shift Note Assumed care of patient, who is alert and oriented x2. Name and only. Needs re-orientation to place, situation. Respirations even and unlabored. No S/S of distress/SOB or pain. Bed is low, locked with 2x side rails up. Call light is within reach. Instructed on POC and to call for assist PRN, will continue to monitor for changes Q1hr and PRN.
[2020-03-17 07:34] LABS: Albumin 2.7 g/dL (3.4-5.0); Calcium 8.4 mg/dL (8.5-10.1)
[2020-03-17 07:40] LABS: BUN/Creatinine Ratio 15.2; Bilirubin, Total 0.4 mg/dL (0.2-1.0); Total Protein 6.4 g/dL (6.4-8.2)
--- NOTE | 2020-03-17 07:47 | NUR ---
endorsed to dwight bryant for further nursing management
--- NOTE | 2020-03-17 07:50 | NUR ---
IV to L AC Upon assessment, found tegaderm to IV site to be loose, and surrounding skin is edematous. Stopped IV fluids at this time. Patient refusing IV insertion. Patient is alert and oriented x2. Attempted to educate patient on need for new IV but was unsuccessful. Patient continues to refuse and toss in bed. Will attempt at a later time. Bed is low, locked with 2x side rails up. fuel dock attendant at bedside.
[2020-03-17] MEDS: D5W/SOD CHLO 0.9% 1,000 ML IV SCH ×2 (08:50→21:54)
[2020-03-17 09:17] VITALS: BP 160/86
--- NOTE | 2020-03-17 10:20 | NUR ---
IV insertion R AC IV access obtained by Mariann CARABALLO, via clean sterile technique by inserting a 20 gauge catheter at the right antecubital after 1 attempt. IV secured properly. No trauma to site. Patient tolerated well.
[2020-03-17] MEDS: THIAMINE 100mg/ml INJ (200mg/2ml VIAL) IV SCH (10:34)
[2020-03-17] MEDS: PANTOPRAZOLE 40 MG/10 ML VIAL INJ IV SCH (10:34)
[2020-03-17] MEDS: ENOXAPARIN SOD 40 MG/0.4 ML SYRINGE SC SCH (10:34)
[2020-03-17] MEDS: FOLIC ACID 1 MG in D5W 5% 50 ML INJ SCH (11:28)
--- NOTE | 2020-03-17 13:00 | NUR ---
WOUND CARE NOTE: IN TO SEE PATIENT AT THIS TIME PER WOUND CARE CONSULT REQUEST. PATIENT ADMITTED TO [facility] WITH DIAGNOSIS OF ETOH INTOXICATION, ALOC. CURRENT ABHIJIT SCORE IS 12. PATIENT HAS SITTER AT BEDSIDE AT THIS TIME. PATIENT IS MAX ASSIST FOR HIS ADL'S, ORDERED SPECIALTY AIR MATTRESS THIS AM WITH HILL ROM. PATIENT TO BE PLACED, PENDING DELIVERY. PATIENT STATES THAT HE OBTAINED AN ALLOGRAFT TO THE RIGHT LATERAL KNEE WITH DR HOBSON A FEW WEEKS AGO. HE IS SUPPOSED TO SEE DR. HOBSON IN HIS CLINIC NEXT WEEK. PATIENT REFUSING ANY WOUND ASSESSMENT AT THIS TIME. WOUND PHOTOS WERE TAKEN UPON ADMIT FOR REFERENCE OF RIGHT LATERAL KNEE SURGICAL GRAFT, AND LEFT FOOT WITH NEUROPATHIC ULCERATIONS. IT IS APPARENT THAT PATIENT HAS HAD AMPUTATIONS OF TWO DIGITS ON THIS FOOT. SKIN/WOUND CARE PLAN IMPLEMENTED. RECOMMEND: EOD/PRN DRESSING CHANGE TO WOUNDS ON RIGHT LATERAL KNEE, LEFT FOOT WOUNDS, FREQUENT TURN SCHEDULE Q 2HOURS, PRN CONDITION PERMITS, WITH PRESSURE REDISTRIBUTION USING PILLOWS/WEDGES, BID/PRN APPLICATION WITH MOISTURE BARRIER CREAM, OPTIFOAM GENTLE SACRAL DRESSING, SPECIALTY AIR MATTRESS, PODIATRY CONSULT WITH DR. HOBSON, DIETARY CONSULT, CONTINUED MONITORING BY WOUND CARE TEAM. Addendum: 03/17/20 at 1825 by Taylor Salcedo RN Amended: Links added.
[2020-03-17] MEDS ORDERED: cefTRIAXone 1GM/50ML D5W 50 ML IV ONE (13:30)
[2020-03-17] MEDS ORDERED: chlordiazePOXIDE HCL 25 MG CAP PO PRN (13:30)
[2020-03-17 14:00] VITALS: BP 160/82
[2020-03-17 14:35] VITALS: BP 122/75
[2020-03-17] MEDS: CLINDAMYCIN 300MG IV 50 ML IV SCH ×2 (15:03→21:54)
--- NOTE | 2020-03-17 17:35 | NUR ---
UA/UDS Collected urine for UA/UDS per MD order. Walked to lab by this RN.
[2020-03-17 18:14] LABS: Urine Bacteria NONE SEEN /hpf (None Seen); Urine Blood 2+ /uL (Negative); Urine Specific Gravity 1.018 (1.001-1.035); Urine WBC 1 /hpf (0 - 3)
[2020-03-17 18:29] LABS: Alcohol, Urine < 3.0 mg/dL (0-10); Amphetamine Screen, Urine NEGATIVE (NEGATIVE); Barbiturate Scree,Urine NEGATIVE (NEGATIVE); Benzodiazephine Screen, Urine NEGATIVE (NEGATIVE); Cannabinoid Screen, Urine POSITIVE (NEGATIVE); Cocaine Screen, Urine NEGATIVE (NEGATIVE); Opiate Scree,Urine NEGATIVE (NEGATIVE); Phencyclidine Screen, Urine NEGATIVE (NEGATIVE)
--- NOTE | 2020-03-17 19:48 | NUR ---
RECEIVED PATIENT FROM DAY SHIFT RN. PATIENT RESTING IN BED. NO S/S OF DISTRESS NOTED. DENIED PAIN FOR NOW. REORIENTED PATIENT TIME AND PLACE. POC INSTRUCTED AND ENCOURAGED PATIENT TO CALL FOR LAUNDRY SORTER IF NEEDED. SPECIAL MATTRESS BED IN LOWEST LOCKED POSITION WITH SIDE RAILS UP X 2. CALL BONNER WITHIN REACH. ALARM ON. SITTER AT BEDSIDE FOR SAFETY. CONTINUE TO MONITOR FOR CHANGES Q1H AND PRN.
--- NOTE | 2020-03-17 21:52 | NUR ---
HOSPITALIST Called/paged MARY WASHINGTON called re:PATIENT C/O PAIN ON HIS RIGHT KNEE @ 01/22. THERE IS NO PRN PAIN MEDICATIONS ORDERED. Waiting for call back. Continue care.
[2020-03-17 22:18] VITALS: BP 162/78
--- NOTE | 2020-03-17 22:47 | NUR ---
HOSPITALIST returned call [facility] returned call, updated on patient status and reason for call, orders received. TYLENOL 650MG ONCE. Continue care.
[2020-03-17] MEDS ORDERED: ACETAMINOPHEN 325 MG TAB PO ONE (23:00)
--- NOTE | 2020-03-17 23:10 | NUR ---
PATIENT AWARE OF TYLENOL FOR HIS RIGHT KNEE PAIN, PATIENT REFUSED TO HAVE TYLENOL. CONTINUE TO MONITOR.
--- NOTE | 2020-03-18 03:06 | NUR ---
PATIENT SLEEPING. NO S/S OF DISTRESS AND PAIN NOTED. SITTER AT BEDSIDE FOR SAFETY. CONTINUE TO MONITOR.
[2020-03-18 05:00] VITALS: BP 164/84
[2020-03-18] MEDS: CLINDAMYCIN 300MG IV 50 ML IV SCH ×3 (05:44→21:38)
--- NOTE | 2020-03-18 05:45 | NUR ---
PATIENT'S BP 164/80, HR 57, PRN BP MEDICATION ORDERED DID NOT GIVE SINCE DECREASED HEART RATE. WILL CALL MD FOR OTHER MEDICATIONS. CONTINUE TO MONITOR.
--- NOTE | 2020-03-18 07:30 | NUR ---
Opening Shift Note Assumed care of patient, who is alert and oriented x2. Respirations even and unlabored. No S/S of distress/SOB or pain. Bed is low, locked with 2x side rails up. Call light is within reach. candy bar attendant at bedside. Instructed on POC and to call for assist PRN, will continue to monitor for changes Q1hr and PRN.
--- NOTE | 2020-03-18 08:17 | NUR ---
Podiatry Consult Discussed POC with Dr. Amaral. Per MD if graft is not in place patient will need a new one. Attempted to assess site to inform MD of current condition of graft but patient is refusing. Will attempt at a later time and page MD with update. Addendum: 03/18/20 at 0847 by Valarie Lopez RN RN 0840 Assessed right BKA. Noted skin graft to right lateral thigh. Edges of skin graft are lifted and there is no skin grafted noted to center of wound. [address] Amaral in regards to condition of patient's skin graft. stated patient will need skin graft replaced and he will be seeing the patient tomorrow. No new orders received.
[2020-03-18 09:00] VITALS: BP 142/79
[2020-03-18] MEDS: cefTRIAXone 1GM/50ML D5W 50 ML IV SCH ×2 (09:15→16:56)
[2020-03-18] MEDS: PANTOPRAZOLE 40 MG/10 ML VIAL INJ IV SCH ×2 (09:15→16:57)
[2020-03-18] MEDS: ENOXAPARIN SOD 40 MG/0.4 ML SYRINGE SC SCH (09:16)
[2020-03-18] MEDS: THIAMINE 100mg/ml INJ (200mg/2ml VIAL) IV SCH ×2 (09:16→16:57)
--- NOTE | 2020-03-18 09:45 | NUR ---
pump technician At bedside.
[2020-03-18] MEDS: FOLIC ACID 1 MG in D5W 5% 50 ML INJ SCH (10:00)
[2020-03-18] MEDS ORDERED: HYDR-4833 PO (10:10)
--- NOTE | 2020-03-18 10:10 | NUR ---
Called [facility] Called [facility] to verify patient's home medications. See updated medication reconciliation. Will update
[2020-03-18] MEDS ORDERED: MORPHINE SULF INJ 2 MG/ML SYRINGE 1ML IV PRN ×2 (10:15→10:45)
--- NOTE | 2020-03-18 10:33 | NUR ---
Home medications Spoke to Dr. Mayo regarding patient's home medications. Received orders to continue Divalproex sodium, Gabapentin, and [place] (see orders).
--- NOTE | 2020-03-18 10:47 | NUR ---
EEG-ELECTROENCEPHALOGRAM COMPLETED AT BEDSIDE AT 10:15.
[2020-03-18] MEDS ORDERED: PHYTONADIONE(VitK) ORAL Susp 10mg/10ml(1mg/ml) PO ONE (11:00)
[2020-03-18 11:06] LABS: Basophils # (auto) 0 10 ^3/uL (0-0.2); Basophils % (auto) 0.7 % (0.0-2.0); Eosinophils # (auto) 0.1 10 ^3/uL (0-0.8); Eosinophils % (auto) 5.1 % (0.0-7.0); Hematocrit 27.9 % (41.0-53.0); Hemoglobin 9.2 g/dL (13.5-17.5); Lymphocytes # (auto) 0.8 10 ^3/uL (0.4-5.4); Lymphocytes % (auto) 39.2 % (10.0-50.0); Mean Corpuscular Hemoglobin 29.5 pg (28.0-32.0); Mean Corpuscular Hgb Conc. 32.9 g/dL (32.0-36.0); Mean Corpuscular Volume 89.8 fL (80.0-100.0); Monocytes # (auto) 0.3 10 ^3/uL (0-1.3); Monocytes % (auto) 16.3 % (0.0-12.0); Neutrophils # (auto) 0.8 10 ^3/uL (1.6-8.6); Neutrophils % (auto) 38.7 % (37.0-80.0); Nucleated Red Blood Cells % 0.1 %; Platelet Count (auto) 117 10^3/uL (140-450); Red Blood Cells 3.11 10^6/uL (4.5-5.90); Red Cell Distribution Width 17.3 % (11.8-14.3); White Blood Cell 2.1 10^3/uL (4.4-10.8)
[2020-03-18] MEDS: D5W/SOD CHLO 0.9% 1,000 ML IV SCH ×2 (11:30→21:39)
[2020-03-18 11:33] LABS: Calcium 8.4 mg/dL (8.5-10.1); Potassium 3.8 mmol/L (3.5-5.1)
[2020-03-18 11:36] LABS: BUN/Creatinine Ratio 18.3
--- NOTE | 2020-03-18 11:36 | NUR ---
IV to right AC. Infiltrated. Surrounding skin is edematous. Attempted to obtain IV access. Unsuccessful after two attempts. Both IV catheters fully intact. Informed charge nurse.
[2020-03-18] MEDS: Ensure HIGH Protein Chocolate 8oz Bottle PO SCH ×2 (12:41→17:48)
[2020-03-18] MEDS: HYDROcodone-ACET 5/325MG TAB PO PRN ×2 (12:43→21:39)
--- NOTE | 2020-03-18 12:49 | NUR ---
Pharmacy Pharmacy to send Vitamin K oral suspension ordered by . Pharmacy aware that [facility] is down.
[2020-03-18 13:00] VITALS: BP 137/73
--- NOTE | 2020-03-18 13:40 | NUR ---
Paged PICC line nurse MD orders for midline consultation. Waiting for call back.
[2020-03-18] MEDS: GABAPENTIN 300 MG CAP PO SCH ×2 (13:47→21:38)
[2020-03-18] MEDS ORDERED: HYDROcodone-ACET 5/325MG TAB PO PRN (14:00)
--- NOTE | 2020-03-18 16:39 | NUR ---
Midline Placement: Patient educated on need for midline placement. All risks and benefits explained and all questions and concerns addresses prior to procedure. 4Fr 20cm midline inserted via right brachail vein using Ultrasound. Sterile technique utilized. Blood return obtained from the single lumen and flushed easily with NS using proper technique. Midline secured with saline lock; biodisc and occlusive dressing applied. Primary RN notified. Midline lot #[id number]. Internal length 20cm External length 0cm
[2020-03-18 17:00] VITALS: BP 159/92
--- NOTE | 2020-03-18 19:29 | NUR ---
RECEIVED PATIENT FROM DAY SHIFT RN. PATIENT RESTING IN BED. NO S/S OF DISTRESS NOTED. DENIED PAIN FOR NOW. DRESSING C/D/I ON LEFT FOOT AND RIGHT KNEE. POC INSTRUCTED AND ENCOURAGED PATIENT TO CALL FOR HARDWOOD FLOOR LAYER IF NEEDED. SPECIAL MATTRESS BED IN LOWEST LOCKED POSITION WITH SIDE RAILS UP X 2. CALL BONNER WITHIN REACH. ALARM ON. SITTER AT BEDSIDE FOR SAFETY. CONTINUE TO MONITOR FOR CHANGES Q1H AND PRN.
--- NOTE | 2020-03-18 19:30 | NUR ---
Called/paged AND ORDERED RECEIVED Dr. MICHAEL called re:PATIENT JUST TRIED TO URINATE IN URINAL, BUT BLEEDING ABOUT 20ML OF BLOOD. MD MICHAEL ORDERED VK 5MG ONCE, AND RENAL U/S, PT/INR AND H&H STAT, REPEAT PT/INR AND H&H TOMORROW. DISCONTINUE LOVENOX, AND UROLOGY CONSULT. ORDERED REPEATED BACK. WILL CARRY IT OUT. Continue care.
[2020-03-18] MEDS ORDERED: PHYTONADIONE (VIT K)10 MG/ML 1ML VIAL SUBCUT ONE (19:45)
--- NOTE | 2020-03-18 19:57 | NUR ---
HOSPITALIST Called/paged Dr. MICHAEL called re: REQUESTED VK 5MG IV ONCE, THERE IS NO IV VK AVAILABLE, . Waiting for call back. Continue care.
--- NOTE | 2020-03-18 20:01 | NUR ---
HOSPITALIST returned call Dr. JARAMILLO returned call, updated on patient status and reason for call, orders received. VK 5MG SC ONCE. Continue care.
--- NOTE | 2020-03-18 21:05 | NUR ---
PHLEBOTOMY AND INDEPENDENT BEAUTY CONSULTANT AT BEDSIDE. BLOOD SHREE FROM MIDLINE, PATIENT TOLERATED WELL. CONTINUE TO MONITOR.
[2020-03-18 21:18] LABS: Hematocrit 25.4 % (41.0-53.0); Hemoglobin 8.3 g/dL (13.5-17.5)
[2020-03-18 21:32] LABS: INR 1.37 (0.9-1.15); Partial Thromboplastin Time 31.3 sec (23.0-31.2)
[2020-03-18 21:57] VITALS: BP 140/81
--- NOTE | 2020-03-19 01:57 | NUR ---
PATIENT SLEEPING. NO S/S OF DISTRESS NOTED. SITTER AT BEDSIDE FOR SAFETY. CONTINUE TO MONITOR.
[2020-03-19 05:00] VITALS: BP 149/82
[2020-03-19] MEDS: GABAPENTIN 300 MG CAP PO SCH ×3 (05:52→20:46)
[2020-03-19] MEDS: CLINDAMYCIN 300MG IV 50 ML IV SCH ×3 (05:52→21:30)
--- NOTE | 2020-03-19 06:16 | NUR ---
BLOOD SHREE FROM MIDLINE, PATIENT TOLERATED WELL. CONTINUE TO MONITOR.
[2020-03-19 07:18] LABS: Basophils # (auto) 0 10 ^3/uL (0-0.2); Basophils % (auto) 0.6 % (0.0-2.0); Eosinophils # (auto) 0.2 10 ^3/uL (0-0.8); Hemoglobin 8.7 g/dL (13.5-17.5); Lymphocytes # (auto) 1.2 10 ^3/uL (0.4-5.4); Lymphocytes % (auto) 39.3 % (10.0-50.0); Mean Corpuscular Hemoglobin 29.8 pg (28.0-32.0); Mean Corpuscular Hgb Conc. 33.3 g/dL (32.0-36.0); Mean Corpuscular Volume 89.5 fL (80.0-100.0); Monocytes # (auto) 0.5 10 ^3/uL (0-1.3); Monocytes % (auto) 14.9 % (0.0-12.0); Neutrophils # (auto) 1.2 10 ^3/uL (1.6-8.6); Neutrophils % (auto) 38.2 % (37.0-80.0); Nucleated Red Blood Cells % 0.1 %; Platelet Count (auto) 120 10^3/uL (140-450); Red Blood Cells 2.91 10^6/uL (4.5-5.90); Red Cell Distribution Width 17.2 % (11.8-14.3); White Blood Cell 3.1 10^3/uL (4.4-10.8)
[2020-03-19 07:20] LABS: Potassium 4.5 mmol/L (3.5-5.1)
--- NOTE | 2020-03-19 07:22 | NUR ---
Opening Shift Note Assumed care of patient, who is alert and oriented x3. Needs re-orientation to place, situation. Respirations even and unlabored. No S/S of distress/SOB or pain. Bed is low, locked with 2x side rails up. Call light is within reach. Instructed on POC and to call for assist PRN, will continue to monitor for changes Q1hr and PRN.
[2020-03-19 07:26] LABS: INR 1.25 (0.9-1.15); Partial Thromboplastin Time 31.6 sec (23.0-31.2)
[2020-03-19 07:28] LABS: BUN/Creatinine Ratio 21.5; Calcium 8.1 mg/dL (8.5-10.1)
--- NOTE | 2020-03-19 07:50 | NUR ---
STEEL SHOT HEADER OPERATOR ROUNDING MD Vidhi MONTOYA AT BEDSIDE. ASSESSING WOUND. ACCORDING TO MD HE WILL PERFORM PROCEDURE ON THURSDAY IF UROLOGY CLEARS THE PATIENT. ALL QUESTIONS AND CONCERNS ADDRESSED AT THIS TIME.
[2020-03-19 09:00] VITALS: BP 159/77
[2020-03-19] MEDS: Ensure HIGH Protein Chocolate 8oz Bottle PO SCH ×3 (10:08→17:06)
[2020-03-19] MEDS: FOLIC ACID 1 MG in D5W 5% 50 ML INJ SCH (10:10)
[2020-03-19] MEDS: THIAMINE 100mg/ml INJ (200mg/2ml VIAL) IV SCH (10:10)
[2020-03-19] MEDS: PANTOPRAZOLE 40 MG/10 ML VIAL INJ IV SCH (10:10)
[2020-03-19] MEDS: cefTRIAXone 1GM/50ML D5W 50 ML IV SCH (10:11)
--- NOTE | 2020-03-19 10:38 | NUR ---
UROLOGIST BRUCE CONTACT MD CALLED RN TO INFORM OF NEW ORDERS. PATIENT WILL NEED CYSTOSCOPY ALL QUESTIONS AND CONCERNS ADDRESSED AT THIS TIME. WILL IMPLEMENT NEW ORDERS PER PROTOCOL
[2020-03-19 13:00] VITALS: BP 141/73
[2020-03-19] MEDS ORDERED: levoFLOXacin 750MG 150 ML IV ONE (13:00)
[2020-03-19] MEDS ORDERED: PHYTONADIONE(VitK) ORAL Susp 10mg/10ml(1mg/ml) PO ONE (13:00)
[2020-03-19] MEDS: D5W/SOD CHLO 0.9% 1,000 ML IV SCH (14:10)
--- NOTE | 2020-03-19 15:58 | NUR ---
WOUND CARE PERFORMED PT TOLERATED WELL
[2020-03-19 16:38] VITALS: BP 148/85
--- NOTE | 2020-03-19 20:00 | NUR ---
Opening Shift Note Assumed care of patient, awake and alert, oriented x4, follows direction. On room air with even and unlabored respirations. Kerlix dressing to right stump and left foot clean dry and intact. PIV intact and patent with IVF infusing per orders. No S/S of distress/SOB or pain. Bed in low locked position with side rails up x2 and call light within reach. Instructed on POC and to call for assist PRN, will continue to monitor for changes Q1hr and PRN.
[2020-03-20 03:43] VITALS: BP 146/82
[2020-03-20 05:12] VITALS: BP 140/73
[2020-03-20] MEDS: D5W/SOD CHLO 0.9% 1,000 ML IV SCH (05:13)
[2020-03-20] MEDS: GABAPENTIN 300 MG CAP PO SCH ×3 (05:16→21:21)
[2020-03-20] MEDS: CLINDAMYCIN 300MG IV 50 ML IV SCH ×3 (05:16→21:21)
[2020-03-20 06:39] LABS: Basophils # (auto) 0 10 ^3/uL (0-0.2); Basophils % (auto) 0.6 % (0.0-2.0); Eosinophils # (auto) 0.2 10 ^3/uL (0-0.8); Eosinophils % (auto) 6.2 % (0.0-7.0); Hematocrit 27.3 % (41.0-53.0); Hemoglobin 9.2 g/dL (13.5-17.5); Lymphocytes # (auto) 1.2 10 ^3/uL (0.4-5.4); Lymphocytes % (auto) 33.3 % (10.0-50.0); Mean Corpuscular Hemoglobin 29.7 pg (28.0-32.0); Mean Corpuscular Hgb Conc. 33.9 g/dL (32.0-36.0); Mean Corpuscular Volume 87.7 fL (80.0-100.0); Monocytes # (auto) 0.5 10 ^3/uL (0-1.3); Monocytes % (auto) 14.8 % (0.0-12.0); Neutrophils # (auto) 1.7 10 ^3/uL (1.6-8.6); Neutrophils % (auto) 45.1 % (37.0-80.0); Platelet Count (auto) 124 10^3/uL (140-450); Red Blood Cells 3.11 10^6/uL (4.5-5.90); Red Cell Distribution Width 17.3 % (11.8-14.3); White Blood Cell 3.7 10^3/uL (4.4-10.8)
[2020-03-20 06:47] LABS: INR 1.28 (0.9-1.15)
[2020-03-20 06:48] LABS: BUN/Creatinine Ratio 23.8
--- NOTE | 2020-03-20 06:55 | NUR ---
Closing Note patient resting in bed with even and unlabored respirations, no s/s of distress or SOB. Bed in low locked position with side rails up x 2 and call light within reach.
[2020-03-20] MEDS: PANTOPRAZOLE 40 MG/10 ML VIAL INJ IV SCH (09:18)
[2020-03-20] MEDS: HYDROcodone-ACET 5/325MG TAB PO PRN ×2 (09:18→17:35)
[2020-03-20] MEDS: THIAMINE 100mg/ml INJ (200mg/2ml VIAL) IV SCH (09:20)
[2020-03-20] MEDS: levoFLOXacin 750MG 150 ML IV SCH (09:20)
[2020-03-20] MEDS: FOLIC ACID 1 MG in D5W 5% 50 ML INJ SCH (11:24)
[2020-03-20] MEDS: Ensure HIGH Protein Chocolate 8oz Bottle PO SCH ×3 (11:24→17:23)
--- NOTE | 2020-03-20 12:47 | NUR ---
Nutrition Assessment Est energy needs 5420-3841 kcal (25-30 kcal/kg BW 68.2kg) Est protein needs 55-68g (0.8-1g/kg BW 68.2kg) WIll reassess prn Addendum: 03/20/20 at [address] Amended: Links added.
[2020-03-20 13:00] VITALS: BP 139/65
[2020-03-20] MEDS ORDERED: FUROSEMIDE 40 MG/4 ML VIAL IV ONE (14:00)
--- NOTE | 2020-03-20 15:30 | NUR ---
PT REPORTS THAT HE WAS ALREADY UP WITH NURSING. ATTEMPT P.T. TOMORROW.
--- NOTE | 2020-03-20 19:15 | NUR ---
Opening Shift Note Assumed care of patient, awake and alert, oriented x4, follows direction. On room air with even and unlabored respirations. Kerlix dressing to right stump and left foot clean dry and intact. No S/S of distress/SOB or pain. Bed in low locked position with side rails up x2 and call light within reach. Instructed on POC and to call for assist PRN, will continue to monitor for changes Q1hr and PRN.
[2020-03-20 22:00] VITALS: BP 150/86
[2020-03-21 05:00] VITALS: BP 133/73
[2020-03-21] MEDS: GABAPENTIN 300 MG CAP PO SCH ×3 (05:48→21:10)
[2020-03-21] MEDS: CLINDAMYCIN 300MG IV 50 ML IV SCH ×2 (05:48→13:58)
[2020-03-21] MEDS: Ensure HIGH Protein Chocolate 8oz Bottle PO SCH ×3 (08:00→18:00)
[2020-03-21 09:00] VITALS: BP 136/78
[2020-03-21] MEDS: levoFLOXacin 750MG 150 ML IV SCH (10:00)
--- NOTE | 2020-03-21 10:30 | NUR ---
Patient taken down to preop, pt care endorsed to Rebecca maldonadoop rn. Patient has been kept NPO since midnight. VSS. No acute distress or sob noted. Mid line patent. Cont care on arrival back to unit.
[2020-03-21] MEDS ORDERED: ceFAZolin 1GM/50ML 50 ML IV ONE (11:53)
[2020-03-21] MEDS ORDERED: MIDAZOLAM HCL 1MG/1ML-2 ML VIAL ONE (12:09)
[2020-03-21] MEDS ORDERED: fentaNYL CITRATE 100 MCG/2 ML VL ONE (12:09)
[2020-03-21] MEDS ORDERED: ceFAZolin 1GM VL ONE (12:16)
[2020-03-21] MEDS ORDERED: PROPOFOL 10 MG/ML 20 ML IV ONE (12:43)
[2020-03-21] MEDS ORDERED: DexAMETHasone SOD PHOS 10MG/1ML VIAL INJ ONE (12:43)
[2020-03-21] MEDS ORDERED: MIDAZOLAM HCL 1MG/1ML-2 ML VIAL IV PRN (13:00)
[2020-03-21] MEDS ORDERED: ONDANSETRON HCL 4 MG/2 ML VIAL IV PRN (13:00)
[2020-03-21] MEDS ORDERED: LABETALOL HCL 5 MG/ML 4ML SYRINGE IV PRN (13:00)
[2020-03-21] MEDS ORDERED: HYDROmorphone HCL 2 MG/ML VL IV PRN (13:00)
[2020-03-21] MEDS ORDERED: ePHEDrine SULFATE 50 MG/ML AMP IV PRN (13:00)
[2020-03-21] MEDS ORDERED: MORPHINE SULFATE 4 MG/ML SYR/VIAL IV PRN (13:00)
--- NOTE | 2020-03-21 13:35 | NUR ---
Patient back from OR at this time dressing to right stump c/d/i VSS bp 149/86 hr 55 o2 97% RR16, pt denies pain at this time. Patient sitting up eating at this time, call light within reach. Will medicate with 1000 morning meds at this time
[2020-03-21] MEDS: FOLIC ACID 1 MG in D5W 5% 50 ML INJ SCH (13:57)
[2020-03-21] MEDS: THIAMINE 100mg/ml INJ (200mg/2ml VIAL) IV SCH (13:57)
[2020-03-21] MEDS: PANTOPRAZOLE 40 MG/10 ML VIAL INJ IV SCH (13:57)
[2020-03-21 13:58] LABS: Basophils # (auto) 0 10 ^3/uL (0-0.2); Basophils % (auto) 0.5 % (0.0-2.0); Eosinophils # (auto) 0.2 10 ^3/uL (0-0.8); Hematocrit 27.9 % (41.0-53.0); Hemoglobin 9.2 g/dL (13.5-17.5); Lymphocytes % (auto) 26.6 % (10.0-50.0); Mean Corpuscular Hgb Conc. 33.1 g/dL (32.0-36.0); Mean Corpuscular Volume 87.6 fL (80.0-100.0); Monocytes # (auto) 0.3 10 ^3/uL (0-1.3); Neutrophils # (auto) 2.3 10 ^3/uL (1.6-8.6); Neutrophils % (auto) 59.9 % (37.0-80.0); Platelet Count (auto) 168 10^3/uL (140-450); Red Blood Cells 3.19 10^6/uL (4.5-5.90); Red Cell Distribution Width 16.9 % (11.8-14.3); White Blood Cell 3.8 10^3/uL (4.4-10.8)
[2020-03-21] MEDS: LISINOPRIL 20 MG TAB PO SCH (13:59)
[2020-03-21 14:16] LABS: BUN/Creatinine Ratio 21.3; Calcium 8.2 mg/dL (8.5-10.1); Potassium 4.2 mmol/L (3.5-5.1)
[2020-03-21 17:02] VITALS: BP 139/74
--- NOTE | 2020-03-21 19:00 | NUR ---
Patient care endorsed endorsed care to Ben quintanilla, patient laying comfortably in bed in no acute distress or sob noted. Call light within reach. Dressing to right stump c/d/i. Fall precs in place per protocol.
--- NOTE | 2020-03-21 19:35 | NUR ---
Opening Shift Note Assumed care of patient, awake and alert. Patient on room air, oxygen saturation 96%. No S/S of distress/SOB or pain. Bed locked in lowest position, side rails up X2, call light within reach. Instructed on POC and to call for assist PRN, will continue to monitor for changes Q1hr and PRN.
[2020-03-21] MEDS: HYDROcodone-ACET 5/325MG TAB PO PRN (19:43)
[2020-03-21] MEDS: CIPROFLOXACIN HCL 500 MG TAB PO SCH (21:09)
[2020-03-21 22:00] VITALS: BP 111/75
[2020-03-21] MEDS: AMOXICILLIN/CLAVULAN 500 MG TAB PO SCH (22:00)
[2020-03-22] MEDS: GABAPENTIN 300 MG CAP PO SCH ×3 (04:48→22:08)
[2020-03-22] MEDS: AMOXICILLIN/CLAVULAN 500 MG TAB PO SCH ×3 (04:50→22:08)
[2020-03-22 05:00] VITALS: BP 123/71
[2020-03-22 06:07] LABS: Potassium 4.3 mmol/L (3.5-5.1)
[2020-03-22 06:11] LABS: BUN/Creatinine Ratio 29.3; Calcium 8.1 mg/dL (8.5-10.1)
[2020-03-22] MEDS: HYDROcodone-ACET 5/325MG TAB PO PRN ×3 (06:27→21:09)
--- NOTE | 2020-03-22 07:30 | NUR ---
Assumed care of Pt. He is sitting comfortably in bed, having breakfast. He states he wants to be discharged home today. he was explained, we need to wait for doctor to round. He verbalized understanding.
--- NOTE | 2020-03-22 07:33 | NUR ---
Closing note Care endorsed to Candy CARABALLO. Patient resting in bed with side rails up X2, bed locked in lowest position, call light within reach. No signs of SOB or distress.
[2020-03-22] MEDS: Ensure HIGH Protein Chocolate 8oz Bottle PO SCH ×3 (08:18→17:19)
[2020-03-22] MEDS: LISINOPRIL 20 MG TAB PO SCH (10:00)
[2020-03-22] MEDS: PANTOPRAZOLE 40 MG/10 ML VIAL INJ IV SCH (10:08)
[2020-03-22] MEDS: CIPROFLOXACIN HCL 500 MG TAB PO SCH ×2 (10:08→22:08)
[2020-03-22 17:18] VITALS: BP 110/61
--- NOTE | 2020-03-22 18:58 | NUR ---
Pt. is resting comfortably in bed. He requested pain medication, but he was explained it isn't due for another two hours. He verbalizes understanding. Bed is in lowest position and call light within reach.
--- NOTE | 2020-03-22 20:00 | NUR ---
RECEIVED PATENT FROM DAY SHIFT RN. PATIENT RESTING IN BED. NO S/S OF DISTRESS NOTED. C/O PAIN @ 01/22. REVIEWED THE SCHEDULE OF PAIN MANAGEMENT WITH PATIENT, WILL COME BACK FOR PAIN MEDICATION WHEN THE TIME IS DUE AND PER PATIENT REQUESTED. DRESSING ON RIGHT KNEE AND LEFT FOOT C/D/I. POC INSTRUCTED AND ENCOURAGED PATIENT TO CALL FOR [employer]CHO[employer] DIRECTOR IF NEEDED. SPECIAL MATTRESS BED IN LOWEST LOCKED POSITION WITH SIDE RAILS UP X 2. CALL BONNER WITHIN REACH. ALARM ON. CONTINUE TO MONITOR FOR CHANGES Q1H AND PRN.
--- NOTE | 2020-03-22 20:10 | NUR ---
MD SHETTY AT BEDSIDE
--- NOTE | 2020-03-22 21:10 | NUR ---
MEDICATED PATIENT FOR PAIN @ 01/22 ORDERED. CONTINUE TO MONITOR.
[2020-03-22 22:00] VITALS: BP 113/67
[2020-03-22] MEDS: SODIUM CHLORIDE 1 GM TAB PO SCH (22:08)
--- NOTE | 2020-03-23 03:08 | NUR ---
PATIENT SLEEPING. NO S/S OF DISTRESS AND PAIN NOTED. CONTINUE TO MONITOR.
[2020-03-23 05:00] VITALS: BP 130/77
[2020-03-23] MEDS: SODIUM CHLORIDE 1 GM TAB PO SCH ×2 (06:07→14:00)
[2020-03-23] MEDS: GABAPENTIN 300 MG CAP PO SCH ×2 (06:07→14:00)
[2020-03-23] MEDS: AMOXICILLIN/CLAVULAN 500 MG TAB PO SCH ×2 (06:07→14:00)
[2020-03-23] MEDS: HYDROcodone-ACET 5/325MG TAB PO PRN (06:08)
--- NOTE | 2020-03-23 06:08 | NUR ---
MEDICATED PATIENT FOR PAIN @ 01/22 ORDERED. CONTINUE TO MONITOR.
--- NOTE | 2020-03-23 07:30 | NUR ---
Opening shift note Patient AOx4, found to be upset because he did not receive a breakfast tray. Breakfast tray ordered at this time. Patient updated on POC, he verbalized understanding. Bed in lowest, locked position, call light within reach. Will continue care.
[2020-03-23] MEDS: Ensure HIGH Protein Chocolate 8oz Bottle PO SCH ×2 (08:00→12:00)
--- NOTE | 2020-03-23 08:15 | NUR ---
Unable to do complete physical assessment. Unable to assess either right lower extremity or left lower extremity do to patient refusal. Per patient he does not want his wound re-dressed or assessed. Patient continued to state, "I'm not taking off my socks I can just tell you i have some cuts because my shoes were too tight and it caused some harm. They already cleaned it with honey and did a dressing change couple days ago. I'm ready to go home". Patient educated on importance of full physical assessment to see if wounds are healing. Patient continues to refuse. Addendum: 03/23/20 at 1303 by MADAI NELSON RN RN Amended: Links added.
[2020-03-23 09:00] VITALS: BP 141/76
[2020-03-23 09:20] LABS: BUN/Creatinine Ratio 25.8; Calcium 8.6 mg/dL (8.5-10.1); Potassium 4.8 mmol/L (3.5-5.1)
[2020-03-23] MEDS: CIPROFLOXACIN HCL 500 MG TAB PO SCH (10:31)
[2020-03-23] MEDS: PANTOPRAZOLE 40 MG/10 ML VIAL INJ IV SCH (10:31)
[2020-03-23] MEDS: LISINOPRIL 20 MG TAB PO SCH (10:32)
--- NOTE | 2020-03-23 12:04 | NUR ---
Nutrition Followup Notes Wt: 70.6kg Pt was sleeping with no family by bedside. per records pt s/p sx for allograft for wounds. pt is currently on 2 gm na diet with ensure Enlive tid with adequate Po of > 75% x 4 per RN doc Est energy needs [id number] kcal (25-30 kcal/kg BW 68.2kg) Est protein needs 55-68g (0.8-1g/kg BW 68.2kg) WIll reassess prn . LABS: BUN 23 H GI: Pt had 1 BM today pt on golyte per RN doc BS: 15 mod risk. Refer to wound assessment report for full details. PES: Altered nutrition related lab values r/t current/chronic medical condition aeb hyponatremia, hypoalbuminemia Comments: Will continue to monitor PO intake, skin status, pertinent labs and weight trends. Will f/u in 2-3 days. rec: 1) consider MVI/C BID. 2) Continue current plan of care
[2020-03-23 13:00] VITALS: BP 108/61
[2020-03-23] MEDS ORDERED: SODC1T PO (13:50)
[2020-03-23] MEDS ORDERED: AMOX500T92 PO (13:50)
[2020-03-23] MEDS ORDERED: CIPR500T4 PO (13:50)
[2020-03-23 14:14] VITALS: BP 141/76
--- NOTE | 2020-03-23 15:00 | NUR ---
D/C Discharge instructions given as ordered. Encourage to follow up with PMD as instructed. All questions and concerns addressed. Patient verbalized understanding. IV removed with catheter intact, pressure dressing applied. Telemetry unit returned to ICU. Patient taken to vehicle via wheelchair with all personal belongings, accompanied by staff. No distress noted at time of departure.
== END 2020-03-23 15:00 | disposition home or self-care (01) | DRG 710 ==
LOC: EDBD 16:24 → EDUNIT# 16:24 → ER 16:24 → TELE 16:25 → TELE-WESTW 21:35
PROVIDERS: ATTEND Internal Medicine Nephrology
PROC: 0HRKXK4 Replacement of Right Lower Leg Skin with Nonautologous Tissue Substitute, Partial Thickness, External Approach (ICD-10-PCS; principal; 2020-03-21 12:15)
DX: A41.9 Sepsis, unspecified organism (principal); N17.0 Acute kidney failure with tubular necrosis; T86.821 Skin graft (allograft) (autograft) failure; E87.1 Hypo-osmolality and hyponatremia; G92 Toxic encephalopathy; D61.818 Other pancytopenia; I12.9 Hypertensive chronic kidney disease with stage 1 through stage 4 chronic kidney disease, or unspecified chronic kidney disease; E16.2 Hypoglycemia, unspecified; N18.9 Chronic kidney disease, unspecified; E44.0 Moderate protein-calorie malnutrition; E86.0 Dehydration; E51.2 Wernicke's encephalopathy; R31.9 Hematuria, unspecified; Y83.5 Amputation of limb(s) as the cause of abnormal reaction of the patient, or of later complication, without mention of misadventure at the time of the procedure; G40.909 Epilepsy, unspecified, not intractable, without status epilepticus; F17.210 Nicotine dependence, cigarettes, uncomplicated; F10.239 Alcohol dependence with withdrawal, unspecified; F41.9 Anxiety disorder, unspecified; F31.9 Bipolar disorder, unspecified; D68.59 Other primary thrombophilia; L03.115 Cellulitis of right lower limb; Z89.511 Acquired absence of right leg below knee
CPT/HCPCS: 36415; 70450; 71045; 76775; 80048; 80053; 80164; 80307; 80320; 81001; 82533; 82962; 83036; 83605; 83930; 83935; 84300; 84439; 84443; 84484; 84550; 85014; 85018; 85025; 85610; 85730; 87040; 87070; 87075; 87077; 87081; 87086; 87186; 87205; 93005; 93306; 95819; 96365; 96375; 97110; 97530; C9113; G0378; J0690; J0696; J1100; J1956; J2250; J2704; J3430; J3490; J7042; J7060

== ENCOUNTER 2020-12-15 08:05 | Inpatient (IN) | payer MEDICAID ==
[~2020-12-15] VITALS: Ht 170.2 cm; Wt 65.5 kg
[~2020-12-15 08:05] MED LIST changes: -AMIT25TA9 PO; +AMOX500T92 PO; -ASCO500C49 PO; +CIPR500T4 PO; -DICL75TA2 PO; -DOXY-286 PO; -FER325T PO; -FOLI1TAB6 PO; +HYDR-4833 PO; -IBUP800T24 PO; -MULTTAB67 PO; -OLA5T PO; -OXYC7.5T88 PO; +SODC1T PO; -THIA100T5 PO; -TRAM50TA2 PO; -VENL75TA2 PO; -ZINC220T3 PO
[2020-12-15] MEDS ORDERED: SODIUM CHLORIDE 0.9% 1,000 ML IVB ONE (09:15)
[2020-12-15] MEDS ORDERED: LORazepam 2MG/ML-1ML VIAL ONE (09:24)
[2020-12-15] MEDS ORDERED: ONDANSETRON HCL 4 MG/2 ML VIAL ONE (09:31)
[2020-12-15] MEDS ORDERED: ONDANSETRON HCL 4 MG/2 ML VIAL IV ONE (09:45)
[2020-12-15] MEDS ORDERED: LORazepam 2MG/ML-1ML VIAL IV ONE (09:45)
[2020-12-15 10:39] LABS: Basophils # (auto) 0 10 ^3/uL (0-0.2); Basophils % (auto) 0.4 % (0.0-2.0); Eosinophils # (auto) 0 10 ^3/uL (0-0.8); Eosinophils % (auto) 0.2 % (0.0-7.0); Hematocrit 37.1 % (41.0-53.0); Hemoglobin 13.3 g/dL (13.5-17.5); Mean Corpuscular Hemoglobin 32.9 pg (28.0-32.0); Mean Corpuscular Hgb Conc. 35.8 g/dL (32.0-36.0); Mean Corpuscular Volume 91.9 fL (80.0-100.0); Monocytes # (auto) 0.4 10 ^3/uL (0-1.3); Monocytes % (auto) 4.8 % (0.0-12.0); Neutrophils # (auto) 7.4 10 ^3/uL (1.6-8.6); Neutrophils % (auto) 83.6 % (37.0-80.0); Nucleated Red Blood Cells % 0.1 %; Platelet Count (auto) 113 10^3/uL (140-450); Red Blood Cells 4.03 10^6/uL (4.5-5.90); Red Cell Distribution Width 16.9 % (11.8-14.3); White Blood Cell 8.9 10^3/uL (4.4-10.8)
[2020-12-15 10:54] LABS: INR 1.46 (0.9-1.15); Partial Thromboplastin Time 30.8 sec (23.0-31.2)
[2020-12-15 10:58] LABS: Alanine Aminotransferase 26 U/L (16-61); Albumin 3.1 g/dL (3.4-5.0); Anion Gap 21 (5-15); Aspartate Aminotransferase 42 U/L (15-37); BUN/Creatinine Ratio 17.8; Blood Urea Nitrogen 30 mg/dL (7-18); Carbon Dioxide 21 mmol/L (21-32); Chloride 83 mmol/L (98-107); GFR African American 54 mL/min; GFR Non-African American 45 mL/min; Glucose 134 mg/dL (74-106); Magnesium 1.4 mg/dL (1.6-2.6); Sodium 125 mmol/L (136-145)
[2020-12-15 11:04] LABS: Lactic Acid w/Reflex 10.6 mmol/L (0.4-2.0)
[2020-12-15 11:06] LABS: Alkaline Phosphatase 79 U/L (45-117); Bilirubin, Total 2.7 mg/dL (0.2-1.0); Total Protein 7.3 g/dL (6.4-8.2)
[2020-12-15] MEDS ORDERED: POTASSIUM CHLORIDE 60 MEQ, LIDOCAINE 1% (LOCAL ANESTH.) 6 ML in SODIUM CHL 0.9% 500 ML IV ONE (11:45)
[2020-12-15 12:13] LABS: Urine Amorphous Crystal FEW /hpf (None Seen); Urine Bacteria FEW /hpf (None Seen); Urine Blood 1+ /uL (Negative); Urine Specific Gravity 1.009 (1.001-1.035); Urine WBC 356 /hpf (0 - 3)
[2020-12-15 12:25] LABS: Alcohol, Urine < 3.0 mg/dL (0-10); Amphetamine Screen, Urine NEGATIVE (NEGATIVE); Barbiturate Scree,Urine NEGATIVE (NEGATIVE); Benzodiazephine Screen, Urine NEGATIVE (NEGATIVE); Cannabinoid Screen, Urine POSITIVE (NEGATIVE); Cocaine Screen, Urine NEGATIVE (NEGATIVE); Opiate Scree,Urine NEGATIVE (NEGATIVE); Phencyclidine Screen, Urine NEGATIVE (NEGATIVE)
[2020-12-15] MEDS ORDERED: cefTRIAXone 1GM/50ML D5W 50 ML IV ONE (13:00)
[2020-12-15] MEDS ORDERED: LEVOTHYROXINE SODIUM 25 MCG TAB PO ONE (13:00)
[2020-12-15] MEDS ORDERED: DEXTROSE (50%) 50ML SYRG IV PRN (15:30)
[2020-12-15] MEDS ORDERED: LACTULOSE 20Gm/30ML SOLN PO PRN (15:30)
[2020-12-15] MEDS ORDERED: PROMETHAZINE HCL 25 MG/ML 1ML IV PRN (15:30)
[2020-12-15] MEDS ORDERED: MORPHINE SULF INJ 2 MG/ML SYRINGE 1ML IV PRN (15:30)
[2020-12-15] MEDS: MAGNESIUM SULFATE 1GM/100ML 100 ML IV SCH ×2 (15:30→17:40)
[2020-12-15] MEDS: SOD CHL 0.9%/ KCL 40MEQ 1,000 ML IV SCH (15:30)
[2020-12-15] MEDS ORDERED: POTASSIUM EFFERVESENT TAB 25 MEQ PO ONE (15:30)
[2020-12-15] MEDS ORDERED: traMADol HCL 50 MG TAB PO PRN (15:30)
[2020-12-15] MEDS ORDERED: NITROGLYCERIN 0.4 MG SL TAB SL PRN (15:30)
[2020-12-15] MEDS ORDERED: SODIUM CHLORIDE 0.9% 1,000 ML IV ONE ×2 (15:30)
[2020-12-15] MEDS ORDERED: ACETAMINOPHEN 500 MG TAB PO PRN (15:30)
[2020-12-15] MEDS ORDERED: FAMOTIDINE (10MG/ML) 2ML VL IV SCH (15:43)
[2020-12-15] MEDS: ACCU-CHEK COMFORT CURVE STRIP VI SCH ×2 (17:00→21:52)
[2020-12-15] MEDS ORDERED: NOREPINEPHRINE 8 MG/250ML KIT 250 ML IV ONE (17:10)
[2020-12-15] MEDS: NOREPINEPHRINE 8 MG/250ML KIT 250 ML IV SCH (18:12)
[2020-12-15] MEDS: metroNIDAZOLE 500 MG TAB PO SCH (23:20)
[2020-12-16] VITALS (10 sets, daily range): BP systolic 100–121; BP diastolic 57–75
[2020-12-16] MEDS: SOD CHL 0.9%/ KCL 40MEQ 1,000 ML IV SCH ×3 (00:11→16:38)
[2020-12-16] MEDS: metroNIDAZOLE 500 MG TAB PO SCH ×3 (06:20→22:17)
[2020-12-16 07:25] LABS: Basophils # (auto) 0 10 ^3/uL (0-0.2); Basophils % (auto) 0.7 % (0.0-2.0); Eosinophils # (auto) 0.1 10 ^3/uL (0-0.8); Eosinophils % (auto) 0.8 % (0.0-7.0); Hematocrit 29.1 % (41.0-53.0); Hemoglobin 10.4 g/dL (13.5-17.5); Lymphocytes # (auto) 1.4 10 ^3/uL (0.4-5.4); Mean Corpuscular Hemoglobin 32.4 pg (28.0-32.0); Mean Corpuscular Hgb Conc. 35.9 g/dL (32.0-36.0); Mean Corpuscular Volume 90.2 fL (80.0-100.0); Monocytes # (auto) 0.5 10 ^3/uL (0-1.3); Neutrophils # (auto) 4.6 10 ^3/uL (1.6-8.6); Neutrophils % (auto) 70.5 % (37.0-80.0); Nucleated Red Blood Cells % 0.1 %; Platelet Count (auto) 82 10^3/uL (140-450); Red Blood Cells 3.23 10^6/uL (4.5-5.90); Red Cell Distribution Width 17.1 % (11.8-14.3); White Blood Cell 6.6 10^3/uL (4.4-10.8)
[2020-12-16 07:39] LABS: Albumin 2.4 g/dL (3.4-5.0); Calcium 7.1 mg/dL (8.5-10.1)
[2020-12-16 07:43] LABS: BUN/Creatinine Ratio 18.1; Bilirubin, Total 1.2 mg/dL (0.2-1.0); Total Protein 5.8 g/dL (6.4-8.2)
[2020-12-16 07:46] LABS: Potassium 2.5 mmol/L (3.5-5.1)
[2020-12-16] MEDS: ACCU-CHEK COMFORT CURVE STRIP VI SCH ×4 (07:47→22:18)
[2020-12-16] MEDS ORDERED: ATEN50TA PO (08:10)
[2020-12-16] MEDS ORDERED: HYDR25TA5 PO (08:10)
[2020-12-16] MEDS ORDERED: LEVO25TA6 PO (08:13)
[2020-12-16] MEDS ORDERED: AMLO-489 PO (08:13)
[2020-12-16] MEDS ORDERED: HYDR50TA69 PO (08:13)
[2020-12-16] MEDS ORDERED: POTASSIUM EFFERVESENT TAB 25 MEQ PO ONE ×2 (08:15→13:15)
[2020-12-16] MEDS: cefTRIAXone 1GM/50ML D5W 50 ML IV SCH (08:51)
[2020-12-16] MEDS: POTASSIUM CHL 20MEQ/100ML 100 ML IV SCH ×2 (09:03→09:38)
[2020-12-16] MEDS ORDERED: LEVOTHYROXINE SODIUM 25 MCG TAB PO ONE (09:30)
[2020-12-16] MEDS ORDERED: PANTOPRAZOLE 40 MG/10 ML VIAL INJ IV ONE (09:30)
[2020-12-16] MEDS ORDERED: SODIUM CHLORIDE 0.9% 1,000 ML IV ONE (09:30)
[2020-12-16] MEDS ORDERED: POTASSIUM CHLORIDE 60 MEQ, LIDOCAINE 1% (LOCAL ANESTH.) 6 ML in SODIUM CHL 0.9% 500 ML IV ONE ×6 (09:45)
[2020-12-16] MEDS ORDERED: ASPirin 81 mg TAB PO SCH (10:00)
[2020-12-16 11:58] LABS: Hematocrit 29.5 % (41.0-53.0); Hemoglobin 10.5 g/dL (13.5-17.5)
[2020-12-16] MEDS: NOREPINEPHRINE 8 MG/250ML KIT 250 ML IV SCH (17:56)
[2020-12-16] MEDS: PANTOPRAZOLE 40 MG TAB PO SCH (22:00)
[2020-12-16 22:02] LABS: Hematocrit 30.6 % (41.0-53.0); Hemoglobin 10.7 g/dL (13.5-17.5)
[2020-12-16] MEDS: FAMOTIDINE (10MG/ML) 2ML VL IV SCH (22:17)
[2020-12-16 23:01] LABS: Potassium 3.4 mmol/L (3.5-5.1)
[2020-12-16 23:02] LABS: Magnesium 0.8 mg/dL (1.6-2.6)
[2020-12-16] MEDS ORDERED: MAGNESIUM SULFATE 1GM/100ML 300 ML IV ONE (23:10)
[2020-12-16] MEDS: MAGNESIUM SULFATE 1GM/100ML 100 ML IV SCH (23:22)
[2020-12-17] VITALS (88 sets, daily range): BP systolic 74–129; BP diastolic 46–81
[2020-12-17] MEDS: MAGNESIUM SULFATE 1GM/100ML 100 ML IV SCH ×5 (00:22→11:30)
[2020-12-17 00:49] LABS: Hematocrit 30.3 % (41.0-53.0); Hemoglobin 10.6 g/dL (13.5-17.5)
[2020-12-17] MEDS: SOD CHL 0.9%/ KCL 40MEQ 1,000 ML IV SCH ×3 (03:44→18:01)
[2020-12-17] MEDS: NOREPINEPHRINE 8 MG/250ML KIT 250 ML IV SCH (04:06)
[2020-12-17 04:14] LABS: Eosinophils # (auto) 0.1 10 ^3/uL (0-0.8); Eosinophils % (auto) 1.2 % (0.0-7.0); Hemoglobin 10.8 g/dL (13.5-17.5); Mean Corpuscular Hemoglobin 32.3 pg (28.0-32.0); Monocytes # (auto) 0.5 10 ^3/uL (0-1.3); Neutrophils # (auto) 4.3 10 ^3/uL (1.6-8.6); Red Blood Cells 3.34 10^6/uL (4.5-5.90); White Blood Cell 6.3 10^3/uL (4.4-10.8)
[2020-12-17 04:18] LABS: Basophils # (auto) 0 10 ^3/uL (0-0.2); Basophils % (auto) 0.5 % (0.0-2.0); Hematocrit 30.7 % (41.0-53.0); Lymphocytes # (auto) 1.5 10 ^3/uL (0.4-5.4); Mean Corpuscular Hgb Conc. 35.2 g/dL (32.0-36.0); Mean Corpuscular Volume 91.7 fL (80.0-100.0); Monocytes % (auto) 7.4 % (0.0-12.0); Neutrophils % (auto) 67.9 % (37.0-80.0); Nucleated Red Blood Cells % 0.1 %; Platelet Count (auto) 64 10^3/uL (140-450); Red Cell Distribution Width 17.7 % (11.8-14.3)
[2020-12-17 04:30] LABS: Albumin 2.5 g/dL (3.4-5.0); Calcium 7.4 mg/dL (8.5-10.1)
[2020-12-17 04:33] LABS: BUN/Creatinine Ratio 9.1; Bilirubin, Total 1.3 mg/dL (0.2-1.0); Total Protein 5.9 g/dL (6.4-8.2)
[2020-12-17 05:00] LABS: Potassium 2.9 mmol/L (3.5-5.1)
[2020-12-17] MEDS ORDERED: POTASSIUM CHL 20MEQ/100ML 100 ML IV ONE ×2 (05:15→05:26)
[2020-12-17] MEDS ORDERED: DEXTROSE (50%) 50ML SYRG IV PRN (05:15)
[2020-12-17] MEDS: InsuLIN REG 1unit/0.01ml Soln (100units/ml) SC SCH ×4 (07:00→22:00)
[2020-12-17] MEDS ORDERED: LEVOTHYROXINE SODIUM 25 MCG TAB PO SCH (07:00)
[2020-12-17] MEDS: metroNIDAZOLE 500 MG TAB PO SCH ×3 (07:09→22:21)
[2020-12-17] MEDS: ACCU-CHEK COMFORT CURVE STRIP VI SCH ×4 (07:19→22:21)
[2020-12-17] MEDS ORDERED: POTASSIUM EFFERVESENT TAB 25 MEQ PO ONE (09:15)
[2020-12-17] MEDS: PANTOPRAZOLE 40 MG TAB PO SCH ×2 (10:00→22:00)
[2020-12-17] MEDS: cefTRIAXone 1GM/50ML D5W 50 ML IV SCH (10:13)
[2020-12-17] MEDS: LEVOTHYROXINE SODIUM 25 MCG TAB PO SCH (10:13)
[2020-12-17] MEDS: FAMOTIDINE (10MG/ML) 2ML VL IV SCH ×2 (10:37→22:22)
[2020-12-18] VITALS (80 sets, daily range): BP systolic 76–117; BP diastolic 27–80
[2020-12-18] MEDS: SOD CHL 0.9%/ KCL 40MEQ 1,000 ML IV SCH ×2 (03:07→12:00)
[2020-12-18] MEDS ORDERED: LORazepam 2MG/ML-1ML VIAL IV ONE (04:00)
[2020-12-18 04:48] LABS: Basophils # (auto) 0 10 ^3/uL (0-0.2); Basophils % (auto) 0.7 % (0.0-2.0); Eosinophils # (auto) 0.1 10 ^3/uL (0-0.8); Lymphocytes # (auto) 0.8 10 ^3/uL (0.4-5.4); Lymphocytes % (auto) 27.4 % (10.0-50.0); Monocytes # (auto) 0.3 10 ^3/uL (0-1.3); Neutrophils # (auto) 1.8 10 ^3/uL (1.6-8.6)
[2020-12-18 05:06] LABS: Albumin 2.1 g/dL (3.4-5.0); Calcium 7.2 mg/dL (8.5-10.1); Magnesium 1.1 mg/dL (1.6-2.6); Potassium 3.8 mmol/L (3.5-5.1)
[2020-12-18 05:08] LABS: Total Protein 5.1 g/dL (6.4-8.2)
[2020-12-18 05:28] LABS: Eosinophils % (auto) 1.9 % (0.0-7.0); Hematocrit 26.7 % (41.0-53.0); Hemoglobin 9.3 g/dL (13.5-17.5); Mean Corpuscular Hemoglobin 32.9 pg (28.0-32.0); Monocytes % (auto) 9.2 % (0.0-12.0); Neutrophils % (auto) 60.8 % (37.0-80.0); Nucleated Red Blood Cells % 0.3 %; Platelet Count (auto) 50 10^3/uL (140-450); Red Blood Cells 2.83 10^6/uL (4.5-5.90)
[2020-12-18] MEDS: ACCU-CHEK COMFORT CURVE STRIP VI SCH ×4 (06:27→20:59)
[2020-12-18] MEDS: LEVOTHYROXINE SODIUM 25 MCG TAB PO SCH (06:27)
[2020-12-18] MEDS: metroNIDAZOLE 500 MG TAB PO SCH ×2 (06:27→14:26)
[2020-12-18] MEDS: InsuLIN REG 1unit/0.01ml Soln (100units/ml) SC SCH ×4 (06:28→20:58)
[2020-12-18] MEDS: cefTRIAXone 1GM/50ML D5W 50 ML IV SCH (08:44)
[2020-12-18] MEDS: PANTOPRAZOLE 40 MG TAB PO SCH ×2 (09:51→20:58)
[2020-12-18] MEDS: FAMOTIDINE (10MG/ML) 2ML VL IV SCH ×2 (09:55→20:58)
[2020-12-18] MEDS: MAGNESIUM SULFATE 1GM/100ML 100 ML IV SCH ×2 (12:01→13:00)
[2020-12-18] MEDS ORDERED: AMPICILLIN INJ 1 GM in SODIUM CHL 0.9% 50 ML IV ONE (15:30)
[2020-12-18] MEDS: NOREPINEPHRINE 8 MG/250ML KIT 250 ML IV SCH (17:45)
[2020-12-18] MEDS: AMPICILLIN INJ 1 GM in SODIUM CHL 0.9% 50 ML IV SCH (20:03)
[2020-12-19] VITALS: BP 81/45
[2020-12-19] MEDS: SOD CHL 0.9%/ KCL 40MEQ 1,000 ML IV SCH ×4 (00:04→21:06)
[2020-12-19 00:15] VITALS: BP 83/54
[2020-12-19] MEDS: AMPICILLIN INJ 1 GM in SODIUM CHL 0.9% 50 ML IV SCH ×5 (02:55→21:52)
[2020-12-19] MEDS: InsuLIN REG 1unit/0.01ml Soln (100units/ml) SC SCH ×2 (06:15→11:30)
[2020-12-19] MEDS: ACCU-CHEK COMFORT CURVE STRIP VI SCH ×2 (06:16→11:30)
[2020-12-19] MEDS: LEVOTHYROXINE SODIUM 25 MCG TAB PO SCH (07:00)
[2020-12-19 09:00] VITALS: BP 89/50
[2020-12-19 09:42] LABS: Basophils # (auto) 0 10 ^3/uL (0-0.2); Eosinophils # (auto) 0.1 10 ^3/uL (0-0.8); Monocytes # (auto) 0.3 10 ^3/uL (0-1.3)
[2020-12-19 09:45] LABS: Basophils % (auto) 0.7 % (0.0-2.0); Eosinophils % (auto) 3.6 % (0.0-7.0); Hematocrit 26.8 % (41.0-53.0); Hemoglobin 9.6 g/dL (13.5-17.5); Lymphocytes # (auto) 0.8 10 ^3/uL (0.4-5.4); Lymphocytes % (auto) 28.3 % (10.0-50.0); Mean Corpuscular Hemoglobin 33.7 pg (28.0-32.0); Mean Corpuscular Hgb Conc. 35.7 g/dL (32.0-36.0); Mean Corpuscular Volume 94.4 fL (80.0-100.0); Neutrophils # (auto) 1.7 10 ^3/uL (1.6-8.6); Neutrophils % (auto) 58.4 % (37.0-80.0); Nucleated Red Blood Cells % 0.1 %; Platelet Count (auto) 58 10^3/uL (140-450); Red Blood Cells 2.84 10^6/uL (4.5-5.90); Red Cell Distribution Width 18.5 % (11.8-14.3)
[2020-12-19 10:16] LABS: Potassium 4.3 mmol/L (3.5-5.1)
[2020-12-19 10:24] LABS: BUN/Creatinine Ratio 6.3; Calcium 7.2 mg/dL (8.5-10.1)
[2020-12-19] MEDS: FAMOTIDINE (10MG/ML) 2ML VL IV SCH ×2 (11:07→21:52)
[2020-12-19] MEDS: PANTOPRAZOLE 40 MG TAB PO SCH ×2 (11:07→21:52)
[2020-12-19 13:00] VITALS: BP 83/54
[2020-12-19 17:00] VITALS: BP 99/61
[2020-12-19 22:00] VITALS: BP 92/60
[2020-12-20] MEDS: SOD CHL 0.9%/ KCL 40MEQ 1,000 ML IV SCH ×2 (03:50→12:10)
[2020-12-20] MEDS: AMPICILLIN INJ 1 GM in SODIUM CHL 0.9% 50 ML IV SCH ×3 (03:53→16:00)
[2020-12-20 05:00] VITALS: BP 107/59
[2020-12-20] MEDS: LEVOTHYROXINE SODIUM 25 MCG TAB PO SCH (06:34)
[2020-12-20 07:37] LABS: Basophils # (auto) 0 10 ^3/uL (0-0.2); Eosinophils # (auto) 0.1 10 ^3/uL (0-0.8); Lymphocytes # (auto) 0.9 10 ^3/uL (0.4-5.4); Monocytes # (auto) 0.2 10 ^3/uL (0-1.3); Neutrophils # (auto) 1.2 10 ^3/uL (1.6-8.6)
[2020-12-20 07:38] LABS: Eosinophils % (auto) 2.8 % (0.0-7.0); Hematocrit 27.8 % (41.0-53.0); Hemoglobin 9.3 g/dL (13.5-17.5); Lymphocytes % (auto) 38.1 % (10.0-50.0); Mean Corpuscular Hemoglobin 33.6 pg (28.0-32.0); Mean Corpuscular Hgb Conc. 33.3 g/dL (32.0-36.0); Mean Corpuscular Volume 100.8 fL (80.0-100.0); Monocytes % (auto) 10.2 % (0.0-12.0); Neutrophils % (auto) 47.9 % (37.0-80.0); Nucleated Red Blood Cells % 0.1 %; Platelet Count (auto) 64 10^3/uL (140-450); Red Blood Cells 2.75 10^6/uL (4.5-5.90); Red Cell Distribution Width 19.4 % (11.8-14.3); White Blood Cell 2.4 10^3/uL (4.4-10.8)
[2020-12-20 08:00] VITALS: BP 102/61
[2020-12-20] MEDS: PANTOPRAZOLE 40 MG TAB PO SCH (09:41)
[2020-12-20] MEDS: FAMOTIDINE (10MG/ML) 2ML VL IV SCH (09:41)
[2020-12-20] MEDS ORDERED: AMPI500C8 PO (10:34)
[2020-12-20 13:00] VITALS: BP 102/52
[2020-12-20 17:00] VITALS: BP 110/62
== END 2020-12-20 20:15 | disposition home health service (06) | DRG 720 ==
LOC: ER 08:05 → EDBD 08:05 → TELE 15:19 → ICU WEST 12-16 20:57 → TELE-WESTW 12-19 00:50
PROVIDERS: ADMIT Internal Medicine; ATTEND Internal Medicine Pulmonary Disease
PROC: 05H933Z Insertion of Infusion Device into Right Brachial Vein, Percutaneous Approach (ICD-10-PCS; principal; 2020-12-15)
PROC: B54MZZA Ultrasonography of Right Upper Extremity Veins, Guidance (ICD-10-PCS; 2020-12-15)
DX: A41.81 Sepsis due to Enterococcus (principal); N17.0 Acute kidney failure with tubular necrosis; R65.21 Severe sepsis with septic shock; E11.21 Type 2 diabetes mellitus with diabetic nephropathy; G93.41 Metabolic encephalopathy; D69.6 Thrombocytopenia, unspecified; E44.1 Mild protein-calorie malnutrition; E11.22 Type 2 diabetes mellitus with diabetic chronic kidney disease; E83.42 Hypomagnesemia; E87.1 Hypo-osmolality and hyponatremia; E86.0 Dehydration; E87.6 Hypokalemia; D64.9 Anemia, unspecified; Z20.822 Contact with and (suspected) exposure to COVID-19; E03.9 Hypothyroidism, unspecified; F17.210 Nicotine dependence, cigarettes, uncomplicated; N18.9 Chronic kidney disease, unspecified; N30.90 Cystitis, unspecified without hematuria; F41.9 Anxiety disorder, unspecified; R00.1 Bradycardia, unspecified; Z85.828 Personal history of other malignant neoplasm of skin; Z89.511 Acquired absence of right leg below knee; R62.7 Adult failure to thrive
CPT/HCPCS: 36415; 70450; 71045; 80048; 80053; 80307; 81001; 82270; 82550; 82962; 83036; 83605; 83735; 83880; 84132; 84443; 84484; 85014; 85018; 85025; 85045; 85049; 85610; 85652; 85730; 87040; 87081; 87086; 87088; 87186; 87426; 87493; 93005; 96365; 96375; C9113; G0378; J0696; J2001; J2405; J3480; J3490